=== PATIENT | male | born 1960 | race Two or more races ===

== ENCOUNTER 2017-09-22 12:40 | Observation (INO) | payer OTHER ==
[~2017-09-22] VITALS: Ht 172.7 cm; Wt 99.8 kg
[~2017-09-22 12:40] MED LIST changes: -FURO-47 PO; -LEVO0.5P3 MC; -LEVO50TA86 PO; -OMEP-137 PO; -PANT40TA65 PO; -SPIR25TA78 PO
[2017-09-22] MEDS ORDERED: OMEP-137 PO (13:10)
[2017-09-22 13:11] LABS: PLATELET COUNT, AUTOMATED 194 K/uL (150-450)
[2017-09-22 13:25] LABS: INR 1.15
[2017-09-22 13:50] VITALS: BP 128/79
[2017-09-22] MEDS: FUROSEMIDE 40 MG/4 ML VIAL IVP SCH (14:20)
--- NOTE | 2017-09-22 14:38 | History & Physical - General ---
History of Present Illness Chief Complaint This patient is a 57-year-old male who came in today to see me in the office for the chief complaint that he has been retaining water. According to patient he has noticed that in the last 1 month he has a steadily been gaining weight and has noticed significant edema of the lower extremities along with water retention in his abdomen his abdominal girth has increased significantly and is getting short of breath with exertion. According to patient 's symptoms have restarted roughly one month ago patient does have history of heavy Alcohol consumption in the past but according to patient he has not had any alcoholic drink in last 2-3 weeks patient is also on pioglitazone and amlodipine which could contribute to edema and fluid retention patient has gained 22 pounds since his last visit about 4 months ago Past medical history significant for NIDDM and is currently on metformin 1000 mg twice a day along with Actos 45 mg once a day blood sugars have been under good control recently last shown blood glucose of 138 and hemoglobin is in the range of 6 Past medical history significant for hypertension and is currently on amlodipine /Olmesartan 5/20 one every day blood pressure has been under good control Vital history significant for hyponatremia and is currently on sodium chloride 1 g every day Also has history of elevated liver function tests and most recent labs have shown AST of 70 and alkaline phosphatase of 199 patient does have a history of cholecystectomy in the past he also has prior history of elevated GGT likely related to alcoholic liver disease patient has also undergone hepatitis panel recently which was negative and antinuclear antibody that was negative and iron panel and ferritin that were all normal No prior history of hypothyroidism but recent labs have shown TSH of 9.1 History Problems: (1) Diabetes mellitus, type 2 Status: Chronic (2) Alcoholic liver disease Status: Chronic (3) Hyponatremia Status: Chronic (4) Hyperlipidemia Status: Chronic (5) Ascites Status: Acute (6) Benign hypertension Status: Chronic (7) Thrombocytopenia Status: Chronic (8) Cholelithiases Status: Chronic (9) GI bleed Status: Chronic (10) Fatty liver Status: Chronic Home Meds Active Scripts Metformin Hcl (METFORMIN HCL) 1,000 Mg Tablet, 1 TAB PO BID, #180 TAB 2 Refills Prov:CHRISTI JENSEN MD 05/12/17 Amlodipine Bes/Olmesartan Med (LISSET 5-20 MG TABLET) 1 Each Tablet, 1 EACH PO DAILY, #90 EACH 4 Refills Prov:CHRISTI JENSEN MD 04/29/17 Pioglitazone Hcl (ACTOS) 45 Mg Tablet, 1 TAB PO QDAY, #90 TAB 4 Refills Prov:CHRISTI JENSEN MD 03/19/17 Atorvastatin Calcium (ATORVASTATIN CALCIUM) 20 Mg Tablet, 1 TAB PO QDAY, #30 TAB 4 Refills Prov:CHRISTI JENSEN MD 02/11/17 Reported Medications Omeprazole (OMEPRAZOLE) 20 Mg Tablet.dr, 20 MG PO QDAY Y for REFLUX, TAB 09/22/17 Sodium Chloride (SODIUM CHLORIDE) 1 Gm Tab, 1 GM PO QDAY, TAB 10/23/16 Allergies: Coded Allergies: No Known Drug Allergies (Verified , 04/29/16) Patient History: FH: diabetes mellitus MOTHER BROTHER OR SISTER Hx Smoking: No Smoking Status: Never Smoker Exposure to Second Hand Smoke?: No Caffeine Intake: Coffee, Tea Caffeine/Cups Per Day: 2-3 Hx Alcohol Use: Yes Alcohol Used: Beer Hx Substance Use Disorder: No Social Drug Use: Never Review of Systems ROS: Constitutional: Denies: Fever, Chills, Malaise ROS: Eyes: Denies: Eye Pain, Itchy Eye, Vision change ROS: HENT: Denies: Ear Drainage, Ear Pain, Ear Pressure ROS: Neurological: Denies Syncope, Denies Dizziness, Denies Vertigo, Denies Seizure ROS: Respiratory: Reports SOB w/ Exertion, Denies Dyspnea, Denies Orthopnea ROS: Cardiac: Reports Palpitations, Reports Peripheral Edema, Denies Chest Pain at Rest, Denies Chest Pain w/ Exertion ROS: Gastrointestinal: Denies Nausea, Denies Vomiting, Denies Diarrhea, Denies Constipation ROS: Genitourinary: Denies Urinary Frequency, Denies Dyuria, Denies Hematuria ROS: Musculoskeletal: Denies RUE Weakness, Denies LUE Weakness, Denies RLE Weakness ROS: Integumentary: Denies Rash, Denies Lesions, Denies Laceration ROS: Psych: Denies Depression, Denies Anxiety, Denies Insomnia ROS: Endocrine: Denies Intolerence to Heat, Denies Intolerence to Cold ROS: Lymph: Denies Swollen Lymph Nodes Exam Constitutional: Well Nourished, No Distress Eyes: Both Conjunctiva Clear, Both Sclera Clear Pupils: Both 3 mm ENT: Normal Neck: Full Range of Motion, Non-tender, No Masses, Normal Thyroid Cardiac: Regular Rate & Rhythm, No Gallop, No Murmur, Other (2+ edema both lower extremities) Edema: 2+ Pedal, 2+ Ankle, 2+ Lower Legs Inspection: Distended Percussion: All Quadrants Tympanic Palpation: Soft, Non-tender, No Guarding, No Hepatosplenomegaly Bowel Sounds: Active to all 4 Quadrants, Other (evidence of significant ascites ) Lymph: No Cervical Lymphadenopathy Integumentary: Skin Intact without Lesion / Mass Medical Decision Making Data Points Result Diagram: 09/22/17 1305 09/22/17 1305 EKG / Imaging Monitor Interpretation: Sinus Tachycardia (PG was done in the office) Pre-Admit Course Medical Record Review: Yes Assessment and Plan Problems: (1) Ascites Status: Acute Assessment & Plan: 09/22/17 patient has developed ascites or last 4 weeks he does have history of chronic liver disease and is likely cause of his ascites I suspect his developing cirrhosis plan is to get an ultrasound and paracentesis if required he will also be placed on furosemide 40 mg twice a day patient is placed on low sodium diet and we will continue with intake output and daily weight (2) Hyponatremia Status: Chronic Assessment & Plan: Patient has history of chronic hyponatremia sodium is 125 today but he appears to be in massive fluid overload and likely related to dilutional hyponatremia therefore his sodium chloride has been stopped and has been placed on fluid restriction with diuresis (3) Hypothyroidism Status: Acute Assessment & Plan: Recent labs have shown TSH of 9.1 plan is to start him on low-dose of levothyroxine at 50 g daily (4) Diabetes mellitus, type 2 Status: Chronic Assessment & Plan: Stable at this time however I plan to discontinue pioglitazone and will continue with metformin (5) Alcoholic liver disease Status: Chronic Assessment & Plan: History of chronic alcohol use the past chronically elevated liver function tests last ultrasound of the abdomen done in August/2015 has shown fatty infiltration of the liver (6) Benign hypertension Status: Chronic Assessment & Plan: Blood pressure medications are going to be on hold (7) Hyperlipidemia Status: Chronic Time Spent on Plan of Care: > 30 min Venous Thromboembolism VTE Risk Physician Assess for VTE Risk: Yes Patient's VTE Risk: Low VTE Diagnostic Test 2 Days Prior to Admit: No Antithrombotics Is Pt On Any Antithrombotics?: No Prophylaxis Tx Contraindicated Pharmacological Contraindicati: Liver Disease Exam Sepsis Stage: Ruled Out Problem Qualifiers (1) Ascites: Ascites type: due to alcoholic cirrhosis Qualified Codes: K70.31 - Alcoholic cirrhosis of liver with ascites (2) Hypothyroidism: Hypothyroidism type: acquired Qualified Codes: E03.9 - Hypothyroidism, unspecified (3) Diabetes mellitus, type 2: Diabetes mellitus usp insulin use: without termite treater use Diabetes mellitus complication status: without complication Qualified Codes: E11.9 - Type 2 diabetes mellitus without complications CHRISTI JENSEN MD Sep 22, 2017 14:38
--- NOTE | 2017-09-22 17:54 | RADIOLOGY IMAGING REPORT ---
FACILITY: PATIENT NAME: Rizwan Nazario : 1960 MR: [id number] V: [id number] EXAM DATE: ORDERING PHYSICIAN: CHRISTI JENSEN TECHNOLOGIST: Location: [facility] Patient: Rizwan Nazario : 1960 Visit/Account:[id number] Date of Sevice: 09/22/2017 Exam type: PARACENTESIS History: ASCITES, 22# WT GAIN Comparison: None. Findings: Informed consent was obtained. The patient's abdomen was prepped and draped usual sterile fashion. Local anesthesia was accomplished 1% lidocaine. Under sonographic guidance a paracentesis catheter w as advanced percutaneously into the lower right-sided the abdomen. Approximately 4400 mL of dark amb er ascitic fluid was removed from the peritoneal cavity. The procedure was accomplished without appa rent complication. IMPRESSION: 1. Successful ultrasound-guided paracentesis Report Dictated By: Jory Bella MD at 09/22/2017 5:50 PM Report E-Signed By: Jory Bella MD at 09/22/2017 5:51 PM WSN:[email or web address]
[2017-09-22] MEDS: metFORMIN HCL 500 MG TAB PO SCH (18:14)
[2017-09-22] MEDS: POTASSIUM CHL 20 MEQ TABCR PO SCH (18:15)
[2017-09-22 19:35] VITALS: BP 110/65
--- NOTE | 2017-09-22 21:13 | RADIOLOGY IMAGING REPORT ---
FACILITY: [facility] PATIENT NAME: Rizwan Nazario : 1960 MR: [id number] V: [id number] EXAM DATE: ORDERING PHYSICIAN: CHRISTI JENSEN TECHNOLOGIST: Location: [facility] Patient: Rizwan Nazario : 1960 Visit/Account:[id number] Date of Sevice: 09/22/2017 EXAMINATION: Complete Abdominal Ultrasound HISTORY: Ascites. COMPARISON: None. FINDINGS: Liver: Coarsened hepatic echotexture, with slight nodularity along the liver surface which may repre sent cirrhosis. There is increased echogenicity of the liver parenchyma compatible with fatty infiltr ation. No focal liver mass by ultrasound. The main portal vein is patent, with normal flow direction. Gallbladder: Surgically absent. Bile Ducts: No biliary ductal dilatation. The common duct measures 4 mm. Pancreas: The head and body of the pancreas are moderately well visualized and unremarkable where se en. Spleen: Normal; length 9 cm. Kidneys: Normal renal echogenicity bilaterally. The renal cortical parenchyma is maintained. Both kidneys are negative for hydronephrosis. The right kidney measures 13.1 cm in length; the left kidne y 13.1 cm. Aorta: Segmentally visualized. Patent and normal in caliber where seen. IVC: Patent. Ascites: Large volume abdominal ascites. IMPRESSION: 1. Liver parenchyma appears coarsened with mild nodularity along the liver surface which may indicate cirrhosis. 2. Fatty infiltration of the liver, with increased echogenicity. 3. Prior cholecystectomy. No bile duct dilatation. 4. Large volume of ascites. 5. Normal spleen size, measuring 9 cm in length. Report Dictated By: Rizwan Barraza MD at 09/22/2017 9:03 PM Report E-Signed By: Rizwan Barraza MD at 09/22/2017 9:09 PM WSN:[id number]
[2017-09-22 23:23] VITALS: BP 107/71
[2017-09-23 05:14] VITALS: BP 101/66
[2017-09-23] MEDS ORDERED: LEVOTHYROXINE SOD 0.05 MG TAB PO SCH (06:00)
[2017-09-23 06:34] LABS: PLATELET COUNT, AUTOMATED 145 K/uL (150-450)
[2017-09-23 08:04] VITALS: BP 91/58
[2017-09-23] MEDS: POTASSIUM CHL 20 MEQ TABCR PO SCH (08:24)
[2017-09-23] MEDS: metFORMIN HCL 500 MG TAB PO SCH (08:24)
[2017-09-23] MEDS: FUROSEMIDE 40 MG/4 ML VIAL IVP SCH (08:26)
--- NOTE | 2017-09-23 08:56 | Hospitalist Progress Note ---
Physical Exam Vital Signs Date Time Temp Pulse Resp B/P (MAP) Pulse Ox O2 Delivery O2 Flow Rate FiO2 09/23/17 08:04 95 Room Air 09/23/17 08:04 98.0 85 16 91/58 (69) Result Diagram: 09/23/17 0553 09/23/17 0553 Monitor Interpretation: Sinus Tachycardia (PG was done in the office) Assessment and Plan Problems: (1) Ascites Status: Acute Assessment & Plan: 09/22/17 patient has developed ascites or last 4 weeks he does have history of chronic liver disease and is likely cause of his ascites I suspect his developing cirrhosis plan is to get an ultrasound and paracentesis if required he will also be placed on furosemide 40 mg twice a day patient is placed on low sodium diet and we will continue with intake output and daily weight (2) Hyponatremia Status: Chronic Assessment & Plan: Patient has history of chronic hyponatremia sodium is 125 today but he appears to be in massive fluid overload and likely related to dilutional hyponatremia therefore his sodium chloride has been stopped and has been placed on fluid restriction with diuresis (3) Hypothyroidism Status: Acute Assessment & Plan: Recent labs have shown TSH of 9.1 plan is to start him on low-dose of levothyroxine at 50 g daily (4) Diabetes mellitus, type 2 Status: Chronic Assessment & Plan: Stable at this time however I plan to discontinue pioglitazone and will continue with metformin (5) Alcoholic liver disease Status: Chronic Assessment & Plan: History of chronic alcohol use the past chronically elevated liver function tests last ultrasound of the abdomen done in August/2015 has shown fatty infiltration of the liver (6) Benign hypertension Status: Chronic Assessment & Plan: Blood pressure medications are going to be on hold (7) Hyperlipidemia Status: Chronic Exam Sepsis Risk: No Definite Risk Problem Qualifiers (1) Ascites: Ascites type: due to alcoholic cirrhosis Qualified Codes: K70.31 - Alcoholic cirrhosis of liver with ascites (2) Hypothyroidism: Hypothyroidism type: acquired Qualified Codes: E03.9 - Hypothyroidism, unspecified (3) Diabetes mellitus, type 2: Diabetes mellitus shape carver insulin use: without shape carver use Diabetes mellitus complication status: without complication Qualified Codes: E11.9 - Type 2 diabetes mellitus without complications CHRISTI JENSEN MD Sep 23, 2017 08:56
[2017-09-23] MEDS ORDERED: PANTOPRAZOLE SOD 40 MG TABEC PO SCH (09:00)
[2017-09-23] MEDS ORDERED: SPIRONOLACTONE 25 MG TAB PO SCH (09:10)
--- NOTE | 2017-09-23 10:18 | RADIOLOGY IMAGING REPORT ---
FACILITY: [facility] [place] PATIENT NAME: Rizwan Nazario : 1960 MR: [id number] V: [id number] EXAM DATE: ORDERING PHYSICIAN: CHRISTI JENSEN TECHNOLOGIST: Location: [facility] Patient: Rizwan Nazario : 1960 Visit/Account:[id number] Date of Sevice: 09/23/2017 Exam type: CHEST PA AND LAT History: fluid overload Comparison: None. Findings: Small amount of airspace consolidation is identified in the right middle lobe and right lower lobe wh ich may represent scarring and/or atelectasis. No evidence of pleural effusions or pulmonary edema. Cardiac silhouette is normal in size. IMPRESSION: 1. Small amount of airspace consolidation in the right middle lobe and right lower lobe consistent w ith scarring and/or atelectasis. Report Dictated By: Jory Bella MD at 09/23/2017 10:12 AM Report E-Signed By: Jory Bella MD at 09/23/2017 10:14 AM WSN:[email or web address]
[2017-09-23] MEDS ORDERED: FURO-47 PO (11:48)
[2017-09-23] MEDS ORDERED: PANT40TA65 PO (11:48)
[2017-09-23] MEDS ORDERED: SPIR25TA78 PO (11:48)
--- NOTE | 2017-09-23 11:52 | Hospitalist Depart ---
Discharge Summary Reason for Hosp/Final Diag: (1) Ascites Status: Acute Hospital Course & Plan: 09/22/17 patient has developed ascites or last 4 weeks he does have history of chronic liver disease and is likely cause of his ascites I suspect his developing cirrhosis plan is to get an ultrasound and paracentesis if required he will also be placed on furosemide 40 mg twice a day patient is placed on low sodium diet and we will continue with intake output and daily weight 09/23/17 patient was admitted yesterday because of ascites and edema of the lower extremities patient underwent paracentesis yesterday and 4400. ML of dark fredy colored ascites fluid was removed. Ultrasound of the abdomen has shown coarse liver parenchyma with mild nodularity may be indicative of cirrhosis it also showed presence of fatty liver patient was placed on furosemide yesterday and this morning Spironolactone was added. Patient did not get any diuretic this morning because of low blood pressure. Echocardiogram has not shown any LV dysfunction. Patient feels better from yesterday he has minimal weight loss but I believe one of the weights is not accurate as it is not consistent with 4.4 L of paracentesis. Patient is on low-sodium diet patient is also on fluid restriction. He wishes to go home he feels like his breathing is better although he continues to have significant ascites and will need another paracentesis his pulse rate has come down from 110-85 and oxygen is around 95% on room year he has been afebrile I did offer patient that he should stay here for another 24 hours so he can be monitored for his blood pressure and diuresis and can have another paracentesis patient declined and he strongly wished to go home and mentioned that he will come back in for any tests or procedures. Patient will be discharged with the advice to use furosemide to 40 mg every morning with Spironolactone 50 mg every morning. Patient needs to be on 2 g sodium diet and 1.5 L of fluid restriction. Acetic fluid analysis is consistent with ascites related to cirrhosis however acetic fluid albumin is not back yet cytology is also pending I will set him up to have another paracentesis done on 09/25/17 along with repeat lab draw he will continue to monitor his weight at home (2) Hyponatremia Status: Chronic Hospital Course & Plan: Patient has history of chronic hyponatremia sodium is 125 today but he appears to be in massive fluid overload and likely related to dilutional hyponatremia therefore his sodium chloride has been stopped and has been placed on fluid restriction with diuresis 09/23/17 sodium is again 125 daily but he has not diuresed much he has been off sodium chloride. At this time it appears to be dilutional hyponatremia (3) Alcoholic liver disease Status: Chronic Hospital Course & Plan: History of chronic alcohol use the past chronically elevated liver function tests last ultrasound of the abdomen done in August/2015 has shown fatty infiltration of the liver Patient more than likely have cirrhosis ultrasound is consistent although his ProTime is fairly reasonable and platelet count is stable patient has history of heavy alcohol collection in the past he was drinking about 12 packs of beer every day but hasn't stopped drinking in the last 3 weeks he denies any withdrawal symptoms he has strongly been advised to remain off alcohol (4) Anemia Status: Acute Hospital Course & Plan: Hematocrit was 28.7 yesterday and today it is 25.3 Hemoccult was ordered but has not been completed there is no obvious evidence of bleeding plan is to recheck labs in 2 days his recent iron panel that was done at outside lab was normal we will repeat vitamin B12 and folic acid I suspect it is related to myelosuppression (5) Hypothyroidism Status: Acute Hospital Course & Plan: Recent labs have shown TSH of 9.1 plan is to start him on low-dose of levothyroxine at 50 g daily (6) Diabetes mellitus, type 2 Status: Chronic Hospital Course & Plan: Stable at this time however I plan to discontinue pioglitazone and will continue with metformin Blood sugars have remained fairly low and I have planned to discontinue metformin also and will continue to monitor his blood sugars (7) Benign hypertension Status: Chronic Hospital Course & Plan: Blood pressure medications are going to be on hold (8) Hyperlipidemia Status: Chronic Departure Weight (Pounds): 220 Result Diagram: 09/23/17 0553 09/23/17 0553 Imaging Location: [facility] [place] Patient: Rizwan Nazario : 1960 Visit/Account:[id number] Date of Sevice: 09/22/2017 EXAMINATION: Complete Abdominal Ultrasound HISTORY: Ascites. COMPARISON: None. FINDINGS: Liver: Coarsened hepatic echotexture, with slight nodularity along the liver surface which may represent cirrhosis. There is increased echogenicity of the liver parenchyma compatible with fatty infiltration. No focal liver mass by ultrasound. The main portal vein is patent, with normal flow direction. Gallbladder: Surgically absent. Bile Ducts: No biliary ductal dilatation. The common duct measures 4 mm. Pancreas: The head and body of the pancreas are moderately well visualized and unremarkable where seen. Spleen: Normal; length 9 cm. Kidneys: Normal renal echogenicity bilaterally. The renal cortical parenchyma is maintained. Both kidneys are negative for hydronephrosis. The right kidney measures 13.1 cm in length; the left kidney 13.1 cm. Aorta: Segmentally visualized. Patent and normal in caliber where seen. IVC: Patent. Ascites: Large volume abdominal ascites. IMPRESSION: 1. Liver parenchyma appears coarsened with mild nodularity along the liver surface which may indicate cirrhosis. 2. Fatty infiltration of the liver, with increased echogenicity. 3. Prior cholecystectomy. No bile duct dilatation. 4. Large volume of ascites. 5. Normal spleen size, measuring 9 cm in length. Report Dictated By: Rizwan Barraza MD at 09/22/2017 9:03 PM Location: [facility] [place] Patient: Rizwan Nazario : 1960 Visit/Account:[id number] [facility] Exam type: PARACENTESIS History: ASCITES, 22# WT GAIN Comparison: None. Findings: Informed consent was obtained. The patient's abdomen was prepped and draped usual sterile fashion. Local anesthesia was accomplished 1% lidocaine. Under sonographic guidance a paracentesis catheter was advanced percutaneously into the lower right-sided the abdomen. Approximately 4400 mL of dark fredy ascitic fluid was removed from the peritoneal cavity. The procedure was accomplished without apparent complication. IMPRESSION: 1. Successful ultrasound-guided paracentesis Report Dictated By: Jory Bella MD at 09/22/2017 5:50 PM Condition: Improved Discharge: Home, Self Care Time Spent: > 30 min Discharge Instructions Home Meds Active Scripts Spironolactone (SPIRONOLACTONE) 25 Mg Tablet, 50 MG PO QAM, #30 TAB 2 Refills Prov:CHRISTI JENSEN MD 09/23/17 Pantoprazole Sodium (PANTOPRAZOLE SODIUM) 40 Mg Tablet.dr, 40 MG PO QDAY, #30 TAB 2 Refills Prov:CHRISTI JENSEN MD 09/23/17 Furosemide (FUROSEMIDE) 40 Mg Tablet, 40 MG PO QAM, #30 TAB 2 Refills Prov:CHRISTI JENSEN MD 09/23/17 Reported Medications Levothyroxine Sodium (LEVOTHYROXINE SODIUM) 50 Mcg Tablet, 50 MCG PO QDAY, TAB 09/23/17 Levothyroxine Sodium (LEVOTHYROXINE SODIUM) 0.5 Gm Powder, 0.5 GM MC DAILY@0600 09/23/17 Discontinued Reported Medications Omeprazole (OMEPRAZOLE) 20 Mg Tablet.dr, 20 MG PO QDAY Y for REFLUX, TAB 09/22/17 Sodium Chloride (SODIUM CHLORIDE) 1 Gm Tab, 1 GM PO QDAY, TAB 10/23/16 Discontinued Scripts Metformin Hcl (METFORMIN HCL) 1,000 Mg Tablet, 1 TAB PO BID, #180 TAB 2 Refills Prov:CHRISTI JENSEN MD 05/12/17 Amlodipine Bes/Olmesartan Med (LISSET 5-20 MG TABLET) 1 Each Tablet, 1 EACH PO DAILY, #90 EACH 4 Refills Prov:CHRISTI JENSEN MD 04/29/17 Pioglitazone Hcl (ACTOS) 45 Mg Tablet, 1 TAB PO QDAY, #90 TAB 4 Refills Prov:CHRISTI JENSEN MD 03/19/17 Atorvastatin Calcium (ATORVASTATIN CALCIUM) 20 Mg Tablet, 1 TAB PO QDAY, #30 TAB 4 Refills Prov:CHRISTI JENSEN MD 02/11/17 Diet: Fluid Restricted, 2 Gram Sodium (NA) Special Instructions: cbs, cmp b12 and Folate on 09/25/17 Therapeutic paracentesis on 09/25/2017 Appointment with Eva in 2 days on 09/25/17 Venous Thromboembolism Antithrombotics Is Pt On Any Antithrombotics?: No Problem Qualifiers (1) Ascites: Ascites type: due to alcoholic cirrhosis Qualified Codes: K70.31 - Alcoholic cirrhosis of liver with ascites (2) Anemia: Anemia type: other cause Other causes of anemia: chronic disease, other Qualified Codes: D63.8 - Anemia in other chronic diseases classified elsewhere (3) Hypothyroidism: Hypothyroidism type: acquired Qualified Codes: E03.9 - Hypothyroidism, unspecified (4) Diabetes mellitus, type 2: Diabetes mellitus mcfp insulin use: without film washer use Diabetes mellitus complication status: without complication Qualified Codes: E11.9 - Type 2 diabetes mellitus without complications CHRISTI JENSEN MD Sep 23, 2017 11:52
[2017-09-23] MEDS ORDERED: LEVO0.5P3 MC (12:19)
[2017-09-23] MEDS ORDERED: LEVO50TA86 PO (12:21)
[2017-09-23] MEDS ORDERED: FUROSEMIDE 40 MG TAB PO SCH (14:00)
[2017-09-25] MEDS ORDERED: SPIR100T31 PO (11:02)
== END 2017-09-23 12:11 | disposition home or self-care (01) ==
LOC: MED 12:40 → INTOOBSV 12:40
PROVIDERS: ADMIT Internal Medicine; ATTEND Internal Medicine
DX: K70.31 Alcoholic cirrhosis of liver with ascites (principal); E87.1 Hypo-osmolality and hyponatremia; E03.9 Hypothyroidism, unspecified; E11.9 Type 2 diabetes mellitus without complications; I10 Essential (primary) hypertension; E78.5 Hyperlipidemia, unspecified
CPT/HCPCS: 36415; 36416; 49083; 71046; 76700; 81001; 82042; 82945; 82948; 83615; 83880; 84157; 84443; 85025; 85610; 85730; 87071; 87205; 88104; 89050; 93306; G0378; G0379; J1940; 82040; 82247; 82310; 82374; 82435; 82565; 82947; 84075; 84132; 84155; 84295; 84450; 84460; 84520

== ENCOUNTER → 2017-09-22 | Outpatient (CLI) | payer OTHER ==
[~2017-09-22] MED LIST: AMLO-543 PO; ATOR20TA65 PO; FURO-47 PO; HYDR-4309 PO; IBU600 PO; IBUP600T22 PO; LEVO0.5P3 MC; LEVO50TA86 PO; LOR5 PO; LOR5/325 PO; METF-1 PO; METF-409 PO; METF-421 PO; OMEP-125 PO; OMEP-137 PO; PANT40TA65 PO; PIOG45TA22 PO; PIOG45TA3 PO; PRAV20TA65 PO; ROSI2TAB11 PO; SODCTAB PO; SPIR25TA78 PO; TELM80TA5 PO; TRILI135PT PO
--- NOTE | 2017-09-23 10:52 | EKG ---
FACILITY: [facility] [place] PATIENT NAME: RITA MARIA : [id number] MR: [id number] V: [id number] EXAM DATE: ORDERING PHYSICIAN: CHRISTI JENSEN TECHNOLOGIST: OXANA Test Reason : Blood Pressure : / mmHG Vent. Rate : 106 BPM Atrial Rate : 106 BPM P-R Int : 142 ms QRS Dur : 080 ms QT Int : 330 ms P-R-T Axes : 027 010 -17 degrees QTc Int : 438 ms Sinus tachycardia Septal infarct , age undetermined Inferior infarct , age undetermined Abnormal ECG No previous ECGs available Referred By: Confirmed By:
== END ==
LOC: RESP 08:28
PROVIDERS: ATTEND Internal Medicine
DX: Z02.9 Encounter for administrative examinations, unspecified (principal)

== ENCOUNTER → 2017-09-25 | Outpatient (CLI) | payer OTHER ==
[~2017-09-25] MED LIST changes: +FURO-47 PO; +LEVO0.5P3 MC; +LEVO50TA86 PO; +OMEP-137 PO; +PANT40TA65 PO; +SPIR100T31 PO; +SPIR25TA78 PO
[2017-09-25 08:59] LABS: PLATELET COUNT, AUTOMATED 185 K/uL (150-450)
[2017-09-25 09:09] LABS: INR 1.2
--- NOTE | 2017-09-25 15:42 | RADIOLOGY IMAGING REPORT ---
FACILITY: [facility] - [place] PATIENT NAME: Rizwan Nazario : 1960 MR: [id number] V: [id number] EXAM DATE: ORDERING PHYSICIAN: CHRISTI JENSEN TECHNOLOGIST: Location: [facility] Patient: Rizwan Nazario : 1960 Visit/Account:[id number] Date of Sevice: 09/25/2017 Ultrasound-guided paracentesis Procedure details: The risks of the procedure were discussed. All questions were answered. The right lower quadrant wa s prepped and draped in sterile fashion. Approximately 5 mL 1% lidocaine was utilized for local anes thesia. A paracentesis needle/catheter was advanced into right lower abdomen ascites under ultrasoun d guidance. The needle was removed and catheter left in place. 5030 mL ascites was then withdrawn. The catheter was removed. No compilations occurred. IMPRESSION: Successful ultrasound-guided paracentesis. Report Dictated By: Wang Cobb MD at 09/25/2017 3:37 PM Report E-Signed By: Wang Cobb MD at 09/25/2017 3:39 PM WSN:[email or web address]
== END ==
LOC: US 07:06
PROVIDERS: ATTEND Internal Medicine
DX: E03.9 Hypothyroidism, unspecified (principal); K70.31 Alcoholic cirrhosis of liver with ascites; R60.0 Localized edema; D69.6 Thrombocytopenia, unspecified; E87.1 Hypo-osmolality and hyponatremia; K92.9 Disease of digestive system, unspecified
CPT/HCPCS: 36415; 49083; 82040; 82247; 82310; 82374; 82435; 82565; 82607; 82728; 82746; 82947; 83540; 83550; 84075; 84132; 84155; 84295; 84450; 84460; 84520; 85025; 85610

== ENCOUNTER → 2017-10-01 | Outpatient (CLI) | payer OTHER ==
[~2017-10-01] MED LIST changes: -PIOG45TA3 PO; +PIOG45TA65 PO; -SPIR100T31 PO; +SPIR100T33 PO; -SPIR25TA78 PO; +SPIR25TA80 PO
[2017-10-01 13:13] LABS: PLATELET COUNT, AUTOMATED 209 K/uL (150-450)
--- NOTE | 2017-10-01 14:01 | RADIOLOGY IMAGING REPORT ---
FACILITY: [facility] - [place] PATIENT NAME: Rizwan Nazario : 1960 MR: [id number] V: [id number] EXAM DATE: ORDERING PHYSICIAN: CHRISTI JENSEN TECHNOLOGIST: Location: [facility] Patient: Rizwan Nazario : 1960 Visit/Account:[id number] Date of Sevice: 10/01/2017 ADDENDUM #1 Results were called to CHRISTI JENSEN M.D. At 10/01/2017 2:06 PM. Report Dictated By: Gibran Green MD at 10/01/2017 2:05 PM Report E-Signed By: Gibran Green MD at 10/01/2017 2:17 PM ORIGINAL REPORT KUB SINGLE VIEW ABDOMEN History: Bloating with abdominal pain. Comparison study: None. Findings: There are multiple mildly dilated loops of small bowel throughout the abdomen. There are i s no gastric distention. There is gas in the transverse colon and left colon. The findings are sugges tive of an early or partial small bowel obstruction. Follow-up films are recommended to follow the pr ogression of these abnormal findings. There are findings of osteoarthrosis involving the hips bilaterally. IMPRESSION: 1. Abnormal findings of multiple dilated loops of small bowel with gas in the transverse colon and le ft colon. The stomach is not dilated. The findings are worrisome for partial or early small bowel obs truction. Report Dictated By: Gibran Green MD at 10/01/2017 1:56 PM Report E-Signed By: Gibran Green MD at 10/01/2017 1:58 PM WSN:[id number]
== END ==
LOC: RAD 12:54
PROVIDERS: ATTEND Internal Medicine
DX: M16.0 Bilateral primary osteoarthritis of hip (principal); R19.8 Other specified symptoms and signs involving the digestive system and abdomen; R18.8 Other ascites; K74.60 Unspecified cirrhosis of liver; E87.1 Hypo-osmolality and hyponatremia; I10 Essential (primary) hypertension
CPT/HCPCS: 36415; 74018; 82040; 82247; 82310; 82374; 82435; 82565; 82947; 84075; 84132; 84155; 84295; 84443; 84450; 84460; 84520; 85025

== ENCOUNTER 2017-10-03 14:39 | Outpatient (RCR) | payer OTHER ==
--- NOTE | 2017-10-02 12:47 | RADIOLOGY IMAGING REPORT ---
FACILITY: [facility] [place] PATIENT NAME: Rizwan Nazario : 1960 MR: [id number] V: [id number] EXAM DATE: ORDERING PHYSICIAN: CHRISTI JENSEN TECHNOLOGIST: Location: [facility] Patient: Rizwan Nazario : 1960 Visit/Account:[id number] Date of Sevice: 10/02/2017 EXAMINATION: CT abdomen and pelvis with contrast COMPARISON: None. HISTORY: Portal hypertension. Small bowel obstruction. Ascites. PROCEDURE: Multiplanar contrast enhanced CT of the abdomen and pelvis with 85 mL intravenous Isovue 3 70 and enteric contrast. One of the following dose optimization techniques was utilized in the perfor delia of this exam: Automated exposure control; adjustment of the mA and/or kV according to the patie nt's size; or use of an iterative reconstruction technique. Specific details can be referenced in [facility]'s radiology CT exam operational policy. FINDINGS: Visualized thorax: Lung base mild atelectasis. No pleural effusion. Visualized cardiac chambers are w ithin normal limits. Liver: Heterogeneous liver with hypertrophy of the caudate lobe and a questionable micronodular conto ur. Gallbladder and biliary system: Cholecystectomy. No bile duct dilation. Spleen: Homogeneous 9.4 cm spleen. Pancreas: Negative. Adrenal glands: Negative. Kidneys and bladder: No renal mass or evidence of an obstructive uropathy. Urinary bladder is unrema rkable. Vessels: Aortoiliac mild to moderate atherosclerosis. No abdominal aortic aneurysm. The portal venous system is patent within main portal vein measuring 1.8 cm in maximal diameter. The umbilical vein is recannulated and there are scattered small portosystemic collaterals. Portal vein confluence and spl enic vein are both patent. Bowel and mesentery: Contrast is present throughout the small bowel and colon. No gastric distention. No small bowel obstruction. Appendix is within normal limits. Minimal stool in the colon. Approximat thor 1.5 cm complex collection of gas along the posterior margin of the cecum (series 2 image 92) is f avored to be within a thin-walled diverticulum with a focal perforation thought to be less likely. No definite site of acute bowel wall inflammation is identified although evaluation is mildly limited b y the surrounding ascites. Mild edema throughout the mesentery and omentum. Pelvic organs: Negative. Lymph nodes: No adenopathy. Free air/free fluid: Large volume of simple appearing abdominopelvic ascites. No definite loculated f luid collection is identified. No pneumoperitoneum. Abdominal wall and osseous structures: Abdominal wall is intact. Mild diffuse edema of the simultaneo us soft tissues. Multilevel degenerative change throughout the visualized spine with moderately advan gregoria degenerative disc disease at L5-S1 and at least mild to moderate canal stenosis. No acute finding s. IMPRESSION: 1. Cirrhosis with a large volume of ascites. 2. No bowel obstruction. 3. Main portal vein is patent. 4. Additional nonacute findings as described above. Results were discussed with CHRISTI JENSEN at 10/02/2017 12:42 PM. Report Dictated By: Marv Rutherford MD at 10/02/2017 12:14 PM Report E-Signed By: Marv Rutherford MD at 10/02/2017 12:44 PM WSN:[id number]
[~2017-10-03 14:39] MED LIST changes: +DIATRIZOATE MEGL/DIATRIZOA SOD 367 MG/ML SOLN ONE; +IOPAMIDOL 76% 100 ML INFUS BTL 100 ML ONE
--- NOTE | 2017-10-06 13:35 | RADIOLOGY IMAGING REPORT ---
FACILITY: [facility] - [place] PATIENT NAME: Rizwan Nazario : 1960 MR: [id number] V: [id number] EXAM DATE: ORDERING PHYSICIAN: CHRISTI JENSEN TECHNOLOGIST: Location: [facility] [place] Patient: Rizwan Nazario : 1960 Visit/Account:[id number] Date of Sevice: 10/06/2017 Ultrasound-guided paracentesis INDICATION: Ascites. Liver cirrhosis. COMPARISON: None Available. FINDINGS: After informed consent was obtained, the patient was prepped and draped in the standard alina rile fashion. Local anesthesia was obtained with 1% buffered lidocaine in the right lower quadrant. Under fluoroscopic guidance, an arrow needle was advanced into the peritoneal cavity and approximatel y 5010 mL of clear yellow fluid was drained. There were no immediate complications and the patient tolerated the procedure well. IMPRESSION: 1. Successful ultrasound guided paracentesis without complication. Report Dictated By: Milton Huerta at 10/06/2017 1:30 PM Report E-Signed By: Milton Huerta at 10/06/2017 1:31 PM WSN:[email or web address]
[2017-10-08] MEDS ORDERED: TRAM-420 PO (08:30)
[2017-10-14] MEDS ORDERED: LEVO50TA86 PO (11:48)
== END 2017-10-06 18:00 | disposition home or self-care (01) ==
LOC: CT 14:39
PROVIDERS: ATTEND Internal Medicine
DX: K70.31 Alcoholic cirrhosis of liver with ascites (principal); K76.6 Portal hypertension
CPT/HCPCS: 49083; 74177; A7048; Q9967

== ENCOUNTER → 2017-12-03 | Outpatient (CLI) | payer OTHER ==
[~2017-12-03] MED LIST changes: -DIATRIZOATE MEGL/DIATRIZOA SOD 367 MG/ML SOLN ONE; -IOPAMIDOL 76% 100 ML INFUS BTL 100 ML ONE; +LEVO75TA73 PO; -METF-421 PO; +METF-452 PO; +TRAM-420 PO
--- NOTE | 2017-12-03 16:21 | RADIOLOGY IMAGING REPORT ---
FACILITY: [facility] PATIENT NAME: Rizwan Nazario : 1960 MR: [id number] V: [id number] EXAM DATE: ORDERING PHYSICIAN: CHRISTI JENSEN TECHNOLOGIST: Location: [facility] Patient: Rizwan Nazario : 1960 Visit/Account:[id number] Date of Sevice: 12/03/2017 Exam type: PARACENTESIS History: Ascites Comparison: October 06, 2017. Findings: Pulmonary sonographic images of the abdomen demonstrate a moderate amount of ascites. Informed consent was obtained. The right-sided the patient's abdomen was prepped and draped usual st erile fashion. Local anesthesia was accomplished 1% lidocaine. Under sonographic guidance a paracen tesis catheter was advanced percutaneously into the right lower abdominal wall into the peritoneal ca vity. 4950 mL of straw-colored ascites were removed. The procedure was accomplished without apparen t complication IMPRESSION: 1. Successful sonographically guided paracentesis with interval removal of 4950 mL of clear straw-co lored ascites Report Dictated By: Jory Bella MD at 12/03/2017 4:16 PM Report E-Signed By: Jory Bella MD at 12/03/2017 4:18 PM WSN:[email or web address]
== END ==
LOC: US 01:46
PROVIDERS: ATTEND Internal Medicine
DX: K74.60 Unspecified cirrhosis of liver (principal); R18.8 Other ascites
CPT/HCPCS: 49083

== ENCOUNTER → 2017-12-05 | Outpatient (CLI) | payer OTHER ==
--- NOTE | 2017-12-05 17:10 | RADIOLOGY IMAGING REPORT ---
FACILITY: [facility] PATIENT NAME: Rizwan Nazario : 1960 MR: [id number] V: [id number] EXAM DATE: ORDERING PHYSICIAN: JEANETTE EUGENE TECHNOLOGIST: Location: [facility] Patient: Rizwan Nazario : 1960 Visit/Account:[id number] Date of Sevice: 12/05/2017 EXAMINATION: Ultrasound-guided paracentesis HISTORY: Cirrhotic ascites PROCEDURE: Previous studies were reviewed. Procedure benefits and risks were discussed with the patient and writ ten consent was obtained. Time out was performed prior to the procedure. Ultrasound images were taken and saved of the largest pocket in the right upper quadrant and sent to PACS for permanent archiving Ultrasound was used to polly an area on upper abdomen for paracentesis the patient's skin was prepped and draped in the usual sterile fashion. Three mL of lidocaine 1% was used for skin anesthesia. A [employer] catheter was advanced into the ascites without complication. 4360 mL of fluid were successfully evacuated. The previous paracentesis site had leakage. The site was prepped and a 0 silk [address] stitch was pl aced at the previous puncture site and covered with Dermabond. The new puncture site likewise was prepped with a mattress stitch placed with 0 silk and covered with Dermabond IMPRESSION: 1. Successful paracentesis as described. Report Dictated By: Virgilio Castillo MD at 12/05/2017 5:01 PM Report E-Signed By: Virgilio Castillo MD at 12/05/2017 5:05 PM WSN:[email or web address]
== END ==
LOC: US 12:13
PROVIDERS: ATTEND Surgery
DX: K74.60 Unspecified cirrhosis of liver (principal); R18.8 Other ascites
CPT/HCPCS: 49083

== ENCOUNTER → 2017-12-15 | Outpatient (CLI) | payer OTHER ==
[~2017-12-15] MED LIST changes: +OXYC5TAB38 PO
[2017-12-15 12:02] LABS: PLATELET COUNT, AUTOMATED 170 K/uL (150-450)
[2017-12-15 12:09] LABS: INR 1.11
== END ==
LOC: LAB 11:32
PROVIDERS: ATTEND Internal Medicine
DX: R18.8 Other ascites (principal); K74.60 Unspecified cirrhosis of liver; E87.1 Hypo-osmolality and hyponatremia; K76.6 Portal hypertension
CPT/HCPCS: 36415; 82040; 82247; 82310; 82374; 82435; 82565; 82947; 84075; 84132; 84155; 84295; 84450; 84460; 84520; 85025; 85610

== ENCOUNTER → 2017-12-16 | Outpatient (CLI) | payer OTHER ==
--- NOTE | 2017-12-16 16:13 | RADIOLOGY IMAGING REPORT ---
FACILITY: [facility] [place] PATIENT NAME: Rizwan Nazario : 1960 MR: [id number] V: [id number] EXAM DATE: ORDERING PHYSICIAN: CHRISTI JENSEN TECHNOLOGIST: Location: [facility] [place] Patient: Rizwan Nazario : 1960 Visit/Account:[id number] Date of Sevice: 12/16/2017 Exam type: PARACENTESIS History: Ascites Comparison: December 05, 2017. Findings: Informed consent was obtained. The right-sided the patient's abdomen was prepped and draped usual st erile fashion. Local anesthesia was accomplished with 1% lidocaine. Under sonographic guidance a pa racentesis catheter was advanced percutaneously into the right lateral aspect of the patient's abdome n. Approximately 4850 mL of ascites were removed from the peritoneal cavity. The patient tolerated the procedure well. IMPRESSION: 1. Successful sonographically guided paracentesis with interval removal of 4850 mL of ascites Report Dictated By: Jory Bella MD at 12/16/2017 4:08 PM Report E-Signed By: Jory Bella MD at 12/16/2017 4:10 PM WSN:[email or web address]
== END ==
LOC: US 01:12
PROVIDERS: ATTEND Internal Medicine
DX: K74.60 Unspecified cirrhosis of liver (principal); R18.8 Other ascites
CPT/HCPCS: 49083; A7048

== ENCOUNTER 2018-01-06 14:46 | Outpatient (RCR) | payer OTHER ==
[2018-01-06 10:05] LABS: PLATELET COUNT, AUTOMATED 187 K/uL (150-450)
[2018-01-06 10:17] LABS: INR 1.13
[~2018-01-06 14:46] MED LIST changes: -HYDR-4309 PO; +HYDR-653 PO
--- NOTE | 2018-01-07 14:14 | RADIOLOGY IMAGING REPORT ---
FACILITY: [facility] PATIENT NAME: Rizwan Nazario : 1960 MR: [id number] V: [id number] EXAM DATE: ORDERING PHYSICIAN: CHRISTI JENSEN TECHNOLOGIST: Location: [facility] [place] Patient: Rizwan Nazario : 1960 Visit/Account:[id number] Date of Sevice: 01/07/2018 Exam type: PARACENTESIS History: Ascites Comparison: December 16, 2017. Findings: Informed consent was obtained. A large amount of abdominal ascites was demonstrated sonographically. The right lateral aspect the patient's lower abdomen was prepped and draped usual sterile fashion. Local anesthesia was accomplished with 1% lidocaine. Under sonographic guidance a [employer] catheter was advanced percutaneously into the peritoneal cavity. Approximately 4900 mL of ascitic fluid was anika jesus alberto from the peritoneal cavity and sent to laboratory for evaluation. The procedure was accomplished without apparent complication. IMPRESSION: 1. Successful sonographically guided paracentesis with interval removal of 4900 mL of ascitic fluid. Report Dictated By: Jory Bella MD at 01/07/2018 2:10 PM Report E-Signed By: Jory Bella MD at 01/07/2018 2:11 PM PAULON:[email or web address]
[2018-01-09] MEDS ORDERED: OXYC5TAB38 PO (10:20)
[2018-01-09] MEDS ORDERED: DESO15CR TP (11:57)
== END 2018-01-07 12:00 | disposition home or self-care (01) ==
LOC: US 14:46 → EDSTATUS 14:46 → US 01-07 12:00
PROVIDERS: ATTEND Internal Medicine
DX: R18.8 Other ascites (principal); K74.60 Unspecified cirrhosis of liver; E87.1 Hypo-osmolality and hyponatremia
CPT/HCPCS: 36415; 49083; 84443; 85025; 85610; A7048; 82040; 82247; 82310; 82374; 82435; 82565; 82947; 84075; 84132; 84155; 84295; 84450; 84460; 84520

== ENCOUNTER 2018-01-09 14:59 | Emergency (ER) | payer OTHER ==
[~2018-01-09 14:59] MED LIST changes: +DESO15CR TP
--- NOTE | 2018-01-09 15:06 | ER Report ---
History and Physical Time Seen By : 15:06 HPI/ROS CHIEF COMPLAINT: Hyponatremia HISTORY OF PRESENT ILLNESS: This is a 57-year-old male who presents to the emergency department from the cancer center for hyponatremia. Patient was seen and evaluated the cancer center today, was getting an albumin infusion. Noted his sodium was 115, they did call [facility] and was sent to the ED for further evaluation. The patient denies fevers, chills, aches, chest pain, shortness of breath, diarrhea, visual changes or fevers. Patient also has a long-standing history of ascites and liver disease secondary to alcoholism. He does have bruising to his arms REVIEW OF SYSTEMS: Constitutional: No fever, no chills. Eyes: No discharge. ENT: No sore throat. Cardiovascular: No chest pain, no palpitations. Respiratory: No cough, no shortness of breath. Gastrointestinal: No abdominal pain, no vomiting. Genitourinary: No hematuria. Musculoskeletal: No back pain. Skin: As above. Neurological: No headache. Allergies: Coded Allergies: No Known Drug Allergies (Verified , 04/29/16) Home Meds Active Scripts Oxycodone Hcl (OXYCODONE HCL) 5 Mg Tablet, 7.5 MG PO BID PRN for pain, #60 TAB Prov:CHRISTI BERRY MD 01/09/18 Furosemide (FUROSEMIDE) 40 Mg Tablet, 40 MG PO DIRECTED, #120 TAB 2 Refills take 2 in am and 2 in the evening Prov:CHRISTI BERRY MD 01/06/18 Pantoprazole Sodium (PANTOPRAZOLE SODIUM) 40 Mg Tablet.dr, 40 MG PO QDAY, #30 TAB 6 Refills Prov:CHRISTI BERRY MD 10/17/17 Levothyroxine Sodium (LEVOTHYROXINE SODIUM) 75 Mcg Tablet, 75 MCG PO QDAY, #90 TAB 2 Refills Prov:CHRISTI BERRY MD 10/17/17 Spironolactone (SPIRONOLACTONE) 100 Mg Tablet, 100 MG PO QAM, #30 TAB 3 Refills Prov:CHRISTI BERRY MD 09/25/17 Discontinued Scripts Desoximetasone (DESOXIMETASONE) 15 Gm Cream..g., 0.05 G TP BID, #15 GM Prov:CHRISTI BERRY MD 01/09/18 Past Medical/Surgical History The patient has a past medical and surgical history of hypertension, hypercholesterolemia, cirrhosis of the liver secondary to alcohol consumption, urinary has stents, arthritis, broken leg, back pain, wears glasses, type II diabetes, hypothyroidism, ascites, cholecystectomy, right foot surgery, paracentesis 6. Reviewed Nurses Notes: Yes Hx Smoking: No Smoking Status: Never Smoker Exposure to Second Hand Smoke?: No Hx Substance Use Disorder: No Hx Alcohol Use: Yes Constitutional Vital Sign - Last 24 Hours 01/09/18 01/09/18 01/09/18 01/09/18 14:59 15:06 15:06 15:14 Temp 97.5 Pulse ??? 66 ??? Resp 16 B/P (MAP) 117/83 (94) 117/83 Pulse Ox 98 98 O2 Delivery Room Air 01/09/18 01/09/18 01/09/18 01/09/18 15:18 15:29 15:30 15:44 Pulse 63 66 B/P (MAP) 114/81 (92) 110/78 (89) Pulse Ox 90 93 01/09/18 01/09/18 01/09/18 01/09/18 15:59 16:00 16:14 16:29 Pulse ? 67 B/P (MAP) ???/??? (9455) Pulse Ox 91 01/09/18 01/09/18 01/09/18 01/09/18 16:30 16:44 16:49 17:00 Pulse 70 68 B/P (MAP) 104/73 (83) 110/72 (85) Pulse Ox 92 91 01/09/18 01/09/18 01/09/18 01/09/18 17:04 17:19 17:30 17:34 Pulse 67 67 62 B/P (MAP) ???/??? (3885) Pulse Ox 93 97 92 01/09/18 01/09/18 01/09/18 01/09/18 17:49 18:00 18:04 18:19 Pulse 63 ? B/P (MAP) ???/??? (4055) Pulse Ox 94 01/09/18 18:23 Temp 97.7 Physical Exam General Appearance: The patient is alert, has no immediate need for airway protection and no signs of toxicity. Eyes: Pupils equal and round no pallor or injection. ENT, Mouth: Mucous membranes are moist. Respiratory: There are no retractions, lungs are clear to auscultation. Cardiovascular: Regular rate and rhythm, no murmurs, clicks or rubs. Gastrointestinal: Abdomen is firm, round and non tender, no masses, hypoactive bowel sounds. Ascites. Neurological: Alert and oriented 4. Moving all extremities. Following all commands. No focal neuro deficits. Skin: Warm and dry, no rashes. Musculoskeletal: Neck is supple non tender. Extremities are nontender, nonswollen and have full range of motion. DIFFERENTIAL DIAGNOSIS: After history and physical exam differential diagnosis was considered for SIADH, dilutional hyponatremia. Medical Decision Making Data Points Laboratory Hematology Test 01/09/18 15:57 01/09/18 17:20 Urine Color Yellow Urine Clarity Clear Urine pH 5.0 pH (4.8-9.5) Urine Specific [place] 1.004 Urine Protein Negative mg/dL (NEGATIVE) Urine Glucose (UA) Negative mg/dL (NEGATIVE) Urine Ketones Negative mg/dL (NEGATIVE) Urine Blood Negative (NEGATIVE) Urine Nitrite Negative (NEGATIVE) Urine Bilirubin Negative (NEGATIVE) Urine Urobilinogen Negative mg/dL (0.2-1.9) Urine Leukocyte Esterase Negative (NEGATIVE) Urine RBC <1 /HPF (0-2/HPF) Urine WBC 1 /HPF (0-5/HPF) Urine Squamous Epithelial Cells None /LPF (</=FEW) Urine Bacteria Negative /HPF (NONE-FEW) Urine Mucus None /HPF (NONE-FEW) Urine Osmolality 129 mosm/K (500-800) Urine Random Sodium 6 MEQ/L Osmolality 267 mOSM/K (275-295) Chemistry Test 01/09/18 15:57 01/09/18 17:20 Urine Color Yellow Urine Clarity Clear Urine pH 5.0 pH (4.8-9.5) Urine Specific [place] 1.004 Urine Protein Negative mg/dL (NEGATIVE) Urine Glucose (UA) Negative mg/dL (NEGATIVE) Urine Ketones Negative mg/dL (NEGATIVE) Urine Blood Negative (NEGATIVE) Urine Nitrite Negative (NEGATIVE) Urine Bilirubin Negative (NEGATIVE) Urine Urobilinogen Negative mg/dL (0.2-1.9) Urine Leukocyte Esterase Negative (NEGATIVE) Urine RBC <1 /HPF (0-2/HPF) Urine WBC 1 /HPF (0-5/HPF) Urine Squamous Epithelial Cells None /LPF (</=FEW) Urine Bacteria Negative /HPF (NONE-FEW) Urine Mucus None /HPF (NONE-FEW) Urine Osmolality 129 mosm/K (500-800) Urine Random Sodium 6 MEQ/L Osmolality 267 mOSM/K (275-295) Urinalysis Test 01/09/18 15:57 Urine Color Yellow Urine Clarity Clear Urine pH 5.0 pH (4.8-9.5) Urine Specific [place] 1.004 Urine Protein Negative mg/dL (NEGATIVE) Urine Glucose (UA) Negative mg/dL (NEGATIVE) Urine Ketones Negative mg/dL (NEGATIVE) Urine Blood Negative (NEGATIVE) Urine Nitrite Negative (NEGATIVE) Urine Bilirubin Negative (NEGATIVE) Urine Urobilinogen Negative mg/dL (0.2-1.9) Urine Leukocyte Esterase Negative (NEGATIVE) Urine RBC <1 /HPF (0-2/HPF) Urine WBC 1 /HPF (0-5/HPF) Urine Squamous Epithelial Cells None /LPF (</=FEW) Urine Bacteria Negative /HPF (NONE-FEW) Urine Mucus None /HPF (NONE-FEW) Urine Osmolality 129 mosm/K (500-800) Urine Random Sodium 6 MEQ/L ED Course/Re-evaluation ED Course The patient was admitted to room. History and physical were obtained. Di fferential diagnoses were considered. An IV was started. Serum osmolality was collected. UA was collected. The patient's urine osmolality was 129, serum osmolality 267. The patient's sodium today when drawn at [facility] is 115, the sodium on 01/06/2018 was 123, the sodium on 12/15/2017 was 123. I did consult with Dr. Mane, the hospitalist on-call as well as the patient's primary care physician Dr. Berry, both agreed that the patient's would be able to go home, the patient's sodium today is likely dilutional secondary to noncompliance of his fluid restriction. I did speak with the patient regarding this, the patient did state that he has not been compliant he has been drinking more fluid than he should, he states it's very difficult to stick to the 1 L a day restriction. I did tell the patient that prior to comply with the 1 L per day fluid restriction for the next couple days follow-up Friday for repeat lab draw, results will go to Dr. Berry. Patient expressed understanding. I did reiterate to the patient that if anything changes over the course , increased confusion or any other complaints that he needs to return to the emergency department immediately. Patient expressed understanding, the patient did have a friend in the room with him that also expressed understanding. The patient had no other concerns at this time. Patient remained complaint free while in the emergency department. Patient was discharged home. Decision to Disposition Date: Jan 09, 2018 Decision to Disposition Time: 18:15 Depart Departure Latest Vital Signs Vital Signs Date Time Temp Pulse Resp B/P (MAP) Pulse Ox O2 Delivery O2 Flow Rate FiO2 01/09/18 18:23 97.7 01/09/18 18:19 ??? 01/09/18 18:00 ???/??? (1665) 01/09/18 17:49 94 01/09/18 15:06 16 Room Air Impression: Primary Impression: Hyponatremia Condition: Improved Disposition: HOME OR SELF-CARE Referrals: CHRISTI BERRY MD (PCP) 1 Week Patient Instructions: Fluid Restriction (ED), Hyponatremia (ED) Additional Instructions: I spoke with our hospitalist and your primary care provider, they feel as I do that you are okay to go home at this time. The hyponatremia is likely due to excess fluid consumption. I do highly recommend that you stick to the 1 L per day fluid restriction. I would also recommend returning to the ER for increased confusion or any other concerns that she may have. Please return to the outpatient laboratory Friday with the prescription IV given U for repeat lab studies, the results will go to Dr. Berry. Get plenty of rest. RICHARD MAYA FUEL PILOT ENGINEER-BC Jan 09, 2018 15:06
[2018-01-09] MEDS ORDERED: TRANEXAMIC AC 1000 MG/10ML SDV ONE (17:35)
== END 2018-01-09 18:25 | disposition home or self-care (01) ==
LOC: ER 15:15
DX: E87.1 Hypo-osmolality and hyponatremia (principal)
CPT/HCPCS: 36415; 81001; 83930; 83935; 84300; 99283

== ENCOUNTER → 2018-01-12 | Outpatient (CLI) | payer OTHER | LOC: LAB 11:35 | PROVIDERS: ATTEND Nurse Practitioner Family | DX: E87.1 Hypo-osmolality and hyponatremia (principal) | CPT/HCPCS: 36415; 82040; 82247; 82310; 82374; 82435; 82565; 82947; 84075; 84132; 84155; 84295; 84450; 84460; 84520 ==

== ENCOUNTER → 2018-01-14 | Outpatient (CLI) | payer OTHER | LOC: LAB 11:36 | PROVIDERS: ATTEND Internal Medicine | DX: E87.1 Hypo-osmolality and hyponatremia (principal); K74.60 Unspecified cirrhosis of liver | CPT/HCPCS: 36415; 82040; 82247; 82310; 82374; 82435; 82565; 82947; 84075; 84132; 84155; 84295; 84450; 84460; 84520 ==

== ENCOUNTER → 2018-01-30 | Outpatient (CLI) | payer OTHER ==
[2018-01-30 11:13] LABS: PLATELET COUNT, AUTOMATED 155 K/uL (150-450)
[2018-01-30 11:28] LABS: INR 1.17
== END ==
LOC: SPU 07:19
PROVIDERS: ATTEND Internal Medicine
DX: R18.8 Other ascites (principal); K74.60 Unspecified cirrhosis of liver; E87.1 Hypo-osmolality and hyponatremia; D69.6 Thrombocytopenia, unspecified
CPT/HCPCS: 85025; 85610; 85730; 86706

== ENCOUNTER → 2018-02-03 | Outpatient (CLI) | payer OTHER ==
--- NOTE | 2018-02-03 15:36 | RADIOLOGY IMAGING REPORT ---
FACILITY: [facility] PATIENT NAME: Rizwan Nazario : 1960 MR: [id number] V: [id number] EXAM DATE: ORDERING PHYSICIAN: CHRISTI JENSEN TECHNOLOGIST: Location: [facility] Patient: Rizwan Nazario : 1960 Visit/Account:[id number] Date of Sevice: 02/03/2018 Ultrasound-guided paracentesis HISTORY: Ascites COMPARISON: 01/07/2018 Procedure/Findings: Following discussion of procedural risks and benefits, informed consent was obtained and witnessed. A formal timeout procedure was performed. Utilizing ultrasound guidance for fluid localization, the [facility] lower abdominal quadrant was prepped and draped in sterile fashion. Following administration of 1 % Xylocaine local anesthesia, a 5 Serbian needle-catheter was introduced under ultrasound guidance. Th e paracentesis catheter was then slowly advanced while the inner needle was carefully fixed in place and subsequently removed. The external component was then secured to a Vacutainer device for purposes of ascites fluid removal. 4650 mL of fluid was removed. The catheter was then removed and hemostasis achieved. Ultrasound images obtained for purposes of smita ging guidance were archived to the hospital PACS. Complications: No immediate complications. IMPRESSION: 1. Successful ultrasound-guided paracentesis with removal of 4650 mL of ascites fluid. Report Dictated By: Lewis Fowler MD at 02/03/2018 3:29 PM Report E-Signed By: Lewis Fowler MD at 02/03/2018 3:31 PM WSN:[email or web address]
== END ==
LOC: US 01:11
PROVIDERS: ATTEND Internal Medicine
DX: D69.6 Thrombocytopenia, unspecified (principal); R18.8 Other ascites; K74.60 Unspecified cirrhosis of liver; E87.1 Hypo-osmolality and hyponatremia
CPT/HCPCS: 49083; 82042; 83986; 84157; 87071; 87205; 88104; 89050; A7048

== ENCOUNTER → 2018-03-03 | Outpatient (CLI) | payer OTHER ==
[~2018-03-03] MED LIST changes: +FLU60SYR36 IM
[2018-03-03 14:26] LABS: PLATELET COUNT, AUTOMATED 166 K/uL (150-450)
[2018-03-03 14:39] LABS: INR 1.2
--- NOTE | 2018-03-03 16:50 | RADIOLOGY IMAGING REPORT ---
FACILITY: [facility] PATIENT NAME: Rizwan Nazario : 1960 MR: [id number] V: [id number] EXAM DATE: ORDERING PHYSICIAN: CHIRSTI JENSEN TECHNOLOGIST: Location: [facility] Patient: Rizwan Nazario : 1960 Visit/Account:[id number] Date of Sevice: 03/03/2018 Exam type: PARACENTESIS History: Ascites Comparison: February 03, 2018. Findings: Informed consent was obtained. The patient's right lateral lower abdomen was prepped and draped usua l sterile fashion. Local anesthesia was accomplished with 1% lidocaine. Utilizing sonographic ramya nce a Yueh catheter was advanced percutaneously into the right lateral lower abdominal cavity. 4550 mL of fredy-colored perineal fluid was removed from the patient. The procedure was accomplished with out apparent complication. IMPRESSION: 1. Successful sonographically guided paracentesis with interval removal of 4550 mL of fredy ascitic fluid Report Dictated By: Jory Bella MD at 03/03/2018 4:44 PM Report E-Signed By: Jory Bella MD at 03/03/2018 4:45 PM WSN:[email or web address]
== END ==
LOC: US 00:36
PROVIDERS: ATTEND Internal Medicine
DX: K74.60 Unspecified cirrhosis of liver (principal); R18.8 Other ascites; E78.1 Pure hyperglyceridemia; D69.6 Thrombocytopenia, unspecified
CPT/HCPCS: 36415; 49083; 85025; 85610; A7048; 82040; 82247; 82310; 82374; 82435; 82565; 82947; 84075; 84132; 84155; 84295; 84450; 84460; 84520

== ENCOUNTER 2018-03-27 10:57 | Outpatient (RCR) | payer OTHER ==
[2018-01-09 13:48] VITALS: BP 114/74
[2018-01-09] MEDS: ALBUMIN HUMAN 25% 50 ML VIAL 50 ML IVPB SCH ×4 (14:12→16:30)
[2018-01-09 14:28] LABS: INR 1.21
[2018-01-09 14:30] LABS: PLATELET COUNT, AUTOMATED 156 K/uL (150-450)
[2018-01-16 09:54] VITALS: BP 116/86
[2018-01-16] MEDS: ALBUMIN HUMAN 25% 50 ML VIAL 50 ML IVPB SCH ×4 (10:28→13:30)
[2018-01-23 11:02] VITALS: BP 120/82
[2018-01-23] MEDS: ALBUMIN HUMAN 25% 50 ML VIAL 50 ML IVPB SCH ×4 (11:11→11:17)
[2018-01-30 11:02] VITALS: BP 113/71
[2018-01-30] MEDS: ALBUMIN HUMAN 25% 50 ML VIAL 50 ML IVPB SCH ×4 (11:16→11:24)
[2018-02-06 11:03] VITALS: BP 105/64
[2018-02-06] MEDS: ALBUMIN HUMAN 25% 50 ML VIAL 50 ML IVPB SCH ×4 (11:10→11:32)
[2018-02-20 12:13] VITALS: BP 105/71
[2018-02-27 11:33] VITALS: BP 111/73
[2018-02-27] MEDS: ALBUMIN HUMAN 25% 50 ML VIAL 50 ML IVPB SCH ×4 (11:36→12:07)
[2018-02-27 11:39] LABS: PLATELET COUNT, AUTOMATED 170 K/uL (150-450)
[2018-02-27 12:46] VITALS: BP 119/73
[2018-03-06 11:10] VITALS: BP 119/71
[2018-03-06] MEDS: ALBUMIN HUMAN 25% 50 ML VIAL 50 ML IVPB SCH ×4 (11:22→11:47)
[2018-03-06 12:07] VITALS: BP 106/63
[2018-03-13] MEDS: ALBUMIN HUMAN 25% 50 ML VIAL 50 ML IVPB SCH ×4 (11:15→11:45)
[2018-03-13 11:57] VITALS: BP 117/70
[2018-03-20] MEDS: ALBUMIN HUMAN 25% 50 ML VIAL 50 ML IVPB SCH ×4 (15:52→16:45)
[2018-03-20 16:00] VITALS: BP 116/74
[2018-03-20 17:18] VITALS: BP 116/75
[~2018-03-27 10:57] MED LIST changes: +ALBUMIN HUMAN 25% 50 ML VIAL 50 ML IVPB SCH; +DEXTROSE 5%(*) 100 ML BAG 100 ML IVPB PRN; +LIDOCAINE/SOD BICARB 8.4% SYR ID PRN; +NS(*) 0.9% 100 ML BAG 100 ML IVPB PRN
[2018-03-27 11:04] VITALS: BP 119/70
== END 2018-04-09 ==
LOC: SPU 10:57
PROVIDERS: ATTEND Internal Medicine
DX: K74.60 Unspecified cirrhosis of liver (principal); R18.8 Other ascites; E87.1 Hypo-osmolality and hyponatremia
CPT/HCPCS: 36415; 85025; 85610; 96365; 96366; P9047; 82040; 82247; 82274; 82310; 82374; 82435; 82565; 82947; 84075; 84132; 84155; 84295; 84450; 84460; 84520

== ENCOUNTER → 2018-04-08 | Outpatient (CLI) | payer OTHER ==
[~2018-04-08] MED LIST changes: -ALBUMIN HUMAN 25% 50 ML VIAL 50 ML IVPB SCH; -DEXTROSE 5%(*) 100 ML BAG 100 ML IVPB PRN; -LIDOCAINE/SOD BICARB 8.4% SYR ID PRN; -NS(*) 0.9% 100 ML BAG 100 ML IVPB PRN
--- NOTE | 2018-04-08 14:33 | RADIOLOGY IMAGING REPORT ---
FACILITY: [facility] - [place] PATIENT NAME: Rizwan Nazario : 1960 MR: [id number] V: [id number] EXAM DATE: ORDERING PHYSICIAN: JEANETTE LOVE TECHNOLOGIST: Location: [facility] - [place] Patient: Rizwan Nazario : 1960 Visit/Account:[id number] Date of Sevice: 04/08/2018 EXAMINATION: CT BRAIN NO CONTRAST CLINICAL INDICATION: Fall with slurred speech COMPARISON: No priors TECHNIQUE: Contiguous axial CT images of the brain were obtained without IV contrast. Sagittal and co nicolás reformatted images were also performed. One of the following dose optimization techniques was utilized in the performance of this exam: Autom ated exposure control; adjustment of the mA and/or kV according to the patient's size; or use of an i terative reconstruction technique. Specific details can be referenced in the facility's radiology C T exam operational policy. RESULT: BRAIN: The ventricles are symmetric and normal in size. The brain parenchyma appears normal. The gra y-white matter differentiation is preserved and the basilar cisterns are maintained. The cerebellum a nd brainstem appear normal. There is no mass, acute infarct, hemorrhage or shift of midline. VISUALIZED PARANASAL SINUSES & MASTOIDS: Small polyp versus mucus retention cyst within the right Sinus. SKULL BASE & CRANIUM: Visualized osseous structures are intact. IMPRESSION: No acute findings. Report Dictated By: Wang Astudillo MD at 04/08/2018 2:28 PM Report E-Signed By: Wang Astudillo MD at 04/08/2018 2:29 PM WSN:[email or web address]
== END ==
LOC: CT 13:27
PROVIDERS: ATTEND Nurse Practitioner Family
DX: S09.90XA Unspecified injury of head, initial encounter (principal)
CPT/HCPCS: 70450

== ENCOUNTER 2018-04-12 09:09 | Emergency (ER) | payer OTHER ==
--- NOTE | 2018-04-12 09:36 | ER Report ---
History and Physical Time Seen By MD: 09:36 Hx. of Stated Complaint: FELL LAST WEEK, NO FRACTURES, STIFFNESS, HAS BEEN UNABLE TO SLEEP, WEAK HPI/ROS CHIEF COMPLAINT: Insomnia 2 nights, recent history of fall HISTORY OF PRESENT ILLNESS: Patient is a 58-year-old male with a history significant for liver cirrhosis with a recent fall last week without fractures. Patient reports being unable to sleep for the past 2 nights which is abnormal for him. He also complains of generalized fatigue, mild weakness. Denies fevers, chills, chest pain, shortness breath, abdominal pain, nausea, vomiting, hematuria, dysuria, headache or blurred vision. REVIEW OF SYSTEMS: Constitutional: No fever, no chills. Eyes: No discharge. ENT: No sore throat. Cardiovascular: No chest pain, no palpitations. Respiratory: No cough, no shortness of breath. Gastrointestinal: No abdominal pain, no vomiting. Genitourinary: No hematuria. Musculoskeletal: No back pain. Skin: No rashes. Neurological: No headache. No focal neurological deficits Allergies: Coded Allergies: No Known Drug Allergies (Verified , 04/29/16) Home Meds Active Scripts Zolpidem Tartrate (AMBIEN) 5 Mg Tablet, 1 TAB PO QHS PRN for INSOMNIA, #5 TAB Prov:RAÚL LO DO 04/12/18 Oxycodone Hcl (OXYCODONE HCL) 5 Mg Tablet, 7.5 MG PO TID PRN for pain, #120 TAB Prov:CHRISTI JENSEN MD 02/25/18 Spironolactone (SPIRONOLACTONE) 100 Mg Tablet, 100 MG PO QAM, #30 TAB 3 Refills Prov:CHRISTI JENSEN MD 02/23/18 Furosemide (FUROSEMIDE) 40 Mg Tablet, 40 MG PO DIRECTED, #120 TAB 2 Refills take 2 in am and 2 in the evening Prov:CHRISTI JENSEN MD 01/06/18 Pantoprazole Sodium (PANTOPRAZOLE SODIUM) 40 Mg Tablet.dr, 40 MG PO QDAY, #30 TAB 6 Refills Prov:CHRISTI JENSEN MD 10/17/17 Levothyroxine Sodium (LEVOTHYROXINE SODIUM) 75 Mcg Tablet, 75 MCG PO QDAY, #90 TAB 2 Refills Prov:CHRISTI JENSEN MD 10/17/17 Hx Smoking: No Smoking Status: Never Smoker Exposure to Second Hand Smoke?: No Hx Substance Use Disorder: No Hx Alcohol Use: Yes (HX) Constitutional Vital Sign - Last 24 Hours 04/12/18 04/12/18 04/12/18 04/12/18 09:09 09:19 09:20 09:24 Temp 98.4 Pulse ??? 101 93 Resp 14 B/P (MAP) 139/80 139/80 (99) Pulse Ox 91 88 O2 Delivery Room Air 04/12/18 04/12/18 04/12/18 04/12/18 09:30 09:39 09:54 10:00 Pulse 84 81 Resp 15 B/P (MAP) 131/71 (91) 122/81 (95) Pulse Ox 86 91 04/12/18 04/12/18 04/12/18 04/12/18 10:09 10:24 10:30 10:39 Pulse 84 ??? 76 Resp 23 17 B/P (MAP) 123/75 (91) Pulse Ox 93 93 04/12/18 04/12/18 04/12/18 04/12/18 10:54 11:00 11:05 11:20 Pulse 80 76 87 Resp 24 17 33 B/P (MAP) 119/80 (93) Pulse Ox 95 94 97 04/12/18 04/12/18 04/12/18 04/12/18 11:30 11:35 11:38 11:50 Pulse ??? 76 Resp 15 B/P (MAP) ???/??? (0955) 130/80 (97) Pulse Ox 87 04/12/18 04/12/18 04/12/18 12:00 12:05 12:38 Pulse 87 B/P (MAP) 129/79 (96) O2 Flow Rate 1.0 Intake and Output 04/12/18 04/12/18 04/13/18 15:00 23:00 07:00 Intake Total 800 ml Balance 800 ml Physical Exam General Appearance: The patient is alert, has no immediate need for airway protection and no signs of toxicity. No acute distress Eyes: Pupils equal and round no pallor or injection. ENT, Mouth: Mucous membranes are moist. Respiratory: There are no retractions, lungs are clear to auscultation. Cardiovascular: Regular rate and rhythm. Gastrointestinal: Abdomen is soft and non tender, no masses, bowel sounds normal. Neurological: No focal neurological findings, cranial nerves intact Skin: Warm and dry, no rashes. Musculoskeletal: Neck is supple non tender. Extremities are nontender, nonswollen and have full range of motion. DIFFERENTIAL DIAGNOSIS: After history and physical exam differential diagnosis was considered for insomnia, dehydration, electrolyte imbalance, hyperammonemia, poor sleep hygiene Medical Decision Making Data Points Result Diagram: 04/12/18 1016 04/12/18 [facility] [place] [facility] Hematology Test 04/12/18 10:16 04/12/18 11:38 Red Blood Count 3.14 M/uL (4.00-5.60) Mean Corpuscular Volume 98.4 fL (80.0-96.0) Mean Corpuscular Hemoglobin 33.2 pg (26.0-33.0) Mean Corpuscular Hemoglobin Concent 33.7 g/dL (32.0-36.0) Red Cell Distribution Width 15.2 % (11.5-14.5) Mean Platelet Volume 7.3 fL (7.2-11.1) Neutrophils (%) (Auto) 64.4 % (39.4-72.5) Lymphocytes (%) (Auto) 8.5 % (17.6-49.6) Monocytes (%) (Auto) 18.5 % (4.1-12.4) Eosinophils (%) (Auto) 7.5 % (0.4-6.7) Basophils (%) (Auto) 1.1 % (0.3-1.4) Nucleated RBC Relative Count (auto) 0.2 /100WBC Neutrophils # (Auto) 2.1 K/uL (2.0-7.4) Lymphocytes # (Auto) 0.3 K/uL (1.3-3.6) Monocytes # (Auto) 0.6 K/uL (0.3-1.0) Eosinophils # (Auto) 0.2 K/uL (0.0-0.5) Basophils # (Auto) 0.0 K/uL (0.0-0.1) Nucleated RBC Absolute Count (auto) 0.01 K/uL Peripheral Blood Smear No Y/N Sodium Level 122 mmol/L (137-145) Potassium Level 4.0 mmol/L (3.5-5.0) Chloride Level 84 mmol/L (98-107) Carbon Dioxide Level 23 mmol/L (22-30) Blood Urea Nitrogen 17 mg/dl (9-21) Creatinine 0.70 mg/dl (0.66-1.25) Glomerular Filtration Rate Calc > 60.0 Random Glucose 172 mg/dl (75-110) Calcium Level 9.2 mg/dl (8.4-10.2) Total Bilirubin 1.5 mg/dl (0.2-1.3) Aspartate Amino Transf (AST/SGOT) 66 U/L (0-35) Alanine Aminotransferase (ALT/SGPT) 22 U/L (0-56) Alkaline Phosphatase 165 U/L (0-126) Ammonia 50 UMOL/L (9-33) Total Protein 8.2 g/dl (6.3-8.2) Albumin 4.1 g/dl (3.5-5.0) Urine Color Straw Urine Clarity Clear Urine pH 7.0 pH (4.8-9.5) Urine Specific [place] 1.003 Urine Protein Negative mg/dL (NEGATIVE) Urine Glucose (UA) Negative mg/dL (NEGATIVE) Urine Ketones Negative mg/dL (NEGATIVE) Urine Blood Negative (NEGATIVE) Urine Nitrite Negative (NEGATIVE) Urine Bilirubin Negative (NEGATIVE) Urine Urobilinogen Negative mg/dL (0.2-1.9) Urine Leukocyte Esterase Negative (NEGATIVE) Urine RBC None /HPF (0-2/HPF) Urine WBC <1 /HPF (0-5/HPF) Urine Squamous Epithelial Cells None /LPF (</=FEW) Urine Bacteria Negative /HPF (NONE-FEW) Urine Mucus None /HPF (NONE-FEW) Chemistry Test 04/12/18 10:16 04/12/18 11:38 White Blood Count 3.3 k/uL (4.5-11.0) Red Blood Count 3.14 M/uL (4.00-5.60) Hemoglobin 10.4 g/dL (14.0-18.0) Hematocrit 30.9 % (42.0-52.0) Mean Corpuscular Volume 98.4 fL (80.0-96.0) Mean Corpuscular Hemoglobin 33.2 pg (26.0-33.0) Mean Corpuscular Hemoglobin Concent 33.7 g/dL (32.0-36.0) Red Cell Distribution Width 15.2 % (11.5-14.5) Platelet Count 121 K/uL (150-450) Mean Platelet Volume 7.3 fL (7.2-11.1) Neutrophils (%) (Auto) 64.4 % (39.4-72.5) Lymphocytes (%) (Auto) 8.5 % (17.6-49.6) Monocytes (%) (Auto) 18.5 % (4.1-12.4) Eosinophils (%) (Auto) 7.5 % (0.4-6.7) Basophils (%) (Auto) 1.1 % (0.3-1.4) Nucleated RBC Relative Count (auto) 0.2 /100WBC Neutrophils # (Auto) 2.1 K/uL (2.0-7.4) Lymphocytes # (Auto) 0.3 K/uL (1.3-3.6) Monocytes # (Auto) 0.6 K/uL (0.3-1.0) Eosinophils # (Auto) 0.2 K/uL (0.0-0.5) Basophils # (Auto) 0.0 K/uL (0.0-0.1) Nucleated RBC Absolute Count (auto) 0.01 K/uL Peripheral Blood Smear No Y/N Glomerular Filtration Rate Calc > 60.0 Calcium Level 9.2 mg/dl (8.4-10.2) Total Bilirubin 1.5 mg/dl (0.2-1.3) Aspartate Amino Transf (AST/SGOT) 66 U/L (0-35) Alanine Aminotransferase (ALT/SGPT) 22 U/L (0-56) Alkaline Phosphatase 165 U/L (0-126) Ammonia 50 UMOL/L (9-33) Total Protein 8.2 g/dl (6.3-8.2) Albumin 4.1 g/dl (3.5-5.0) Urine Color Straw Urine Clarity Clear Urine pH 7.0 pH (4.8-9.5) Urine Specific [place] 1.003 Urine Protein Negative mg/dL (NEGATIVE) Urine Glucose (UA) Negative mg/dL (NEGATIVE) Urine Ketones Negative mg/dL (NEGATIVE) Urine Blood Negative (NEGATIVE) Urine Nitrite Negative (NEGATIVE) Urine Bilirubin Negative (NEGATIVE) Urine Urobilinogen Negative mg/dL (0.2-1.9) Urine Leukocyte Esterase Negative (NEGATIVE) Urine RBC None /HPF (0-2/HPF) Urine WBC <1 /HPF (0-5/HPF) Urine Squamous Epithelial Cells None /LPF (</=FEW) Urine Bacteria Negative /HPF (NONE-FEW) Urine Mucus None /HPF (NONE-FEW) Urinalysis Test 04/12/18 11:38 Urine Color Straw Urine Clarity Clear Urine pH 7.0 pH (4.8-9.5) Urine Specific [place] 1.003 Urine Protein Negative mg/dL (NEGATIVE) Urine Glucose (UA) Negative mg/dL (NEGATIVE) Urine Ketones Negative mg/dL (NEGATIVE) Urine Blood Negative (NEGATIVE) Urine Nitrite Negative (NEGATIVE) Urine Bilirubin Negative (NEGATIVE) Urine Urobilinogen Negative mg/dL (0.2-1.9) Urine Leukocyte Esterase Negative (NEGATIVE) Urine RBC None /HPF (0-2/HPF) Urine WBC <1 /HPF (0-5/HPF) Urine Squamous Epithelial Cells None /LPF (</=FEW) Urine Bacteria Negative /HPF (NONE-FEW) Urine Mucus None /HPF (NONE-FEW) EKG/Imaging Imaging Location: [facility] - [place] Patient: Rizwan Nazario : 1960 Visit/Account:[id number] Date of Sevice: 04/12/2018 CHEST PA LAT Indication: Weakness Comparison: None. Findings: Lungs: Clear. Mediastinum/pulmonary vasculature: Heart size and pulmonary vasculature are normal. Bones/soft tissues: Normal. IMPRESSION: Clear lungs. ED Course/Re-evaluation ED Course Patient is a 58-year-old male here with complaints of insomnia status post fall last week with no reported fractures or significant injury. Patient reportedly had difficulty sleeping for the past 2 nights prompting evaluation due to generalized fatigue and weakness. There are no obvious signs of trauma or fractures on physical examination. Patient's labs are checked, there are no e lectrolyte abnormalities, urinalysis was unremarkable as well. Chest x-ray was checked due to patient's reported mild shortness breath, saturations around 90%. Chest x-ray showed no acute findings. Patient was found to have hyperammonemia which is new for this patient however patient denied any history of confusion, altered sensorium so lactulose was deferred at this time. Patient was advised to follow closely with his PCP which she has an appointment with in the upcoming days. Return precautions provided. Patient was advised to attempt taking melatonin for initial Sleep-Aid. Patient was given a prescription for a short course of Ambien when necessary. Patient was stable at time of discharge and in no acute distress, alert and oriented, hemodynamically stable. Decision to Disposition Date: Apr 12, 2018 Decision to Disposition Time: 12:30 Depart Departure Latest Vital Signs Vital Signs Date Time Temp Pulse Resp B/P (MAP) Pulse Ox O2 Delivery O2 Flow Rate FiO2 04/12/18 12:38 1.0 04/12/18 12:05 87 04/12/18 12:00 129/79 (96) 04/12/18 11:50 15 87 04/12/18 09:19 98.4 Room Air Impression: Primary Impression: INSOMNIA, UNSPECIFIED Condition: Improved Disposition: HOME OR SELF-CARE Referrals: CHRISTI JENSEN MD (PCP) New Scripts Zolpidem Tartrate (AMBIEN) 5 Mg Tablet 1 TAB PO QHS PRN for INSOMNIA, #5 TAB Prov: RAÚL LO DO 04/12/18 Patient Instructions: Insomnia (ED) Additional Instructions: Please follow-up in the next 24-48 hours with your family doctor as you may need to start medications to treat your ammonia levels. Please return promptly if you develop confusion, increased fatigue, fevers, chills, chest pain or shortness of breath. You may take 1 tablet or 5 mg of Ambien at night as needed for sleep. Do not drink alcohol or combine with other medications. RAÚL LO DO Apr 12, 2018 09:36
[2018-04-12 10:32] LABS: PLATELET COUNT, AUTOMATED 121 K/uL (150-450)
--- NOTE | 2018-04-12 10:40 | RADIOLOGY IMAGING REPORT ---
[place] [facility] [place] Rizwan Nazario : 1960 MR: [id number] V: [id number] EXAM DATE: ORDERING PHYSICIAN: RAÚL LO TECHNOLOGIST: Location: [facility] Patient: Rizwan Nazario : 1960 Visit/Account:[id number] Date of Sevice: 04/12/2018 CHEST PA LAT Indication: Weakness Comparison: None. Findings: Lungs: Clear. Mediastinum/pulmonary vasculature: Heart size and pulmonary vasculature are normal. Bones/soft tissues: Normal. IMPRESSION: Clear lungs. Report Dictated By: Justin Koroma at 04/12/2018 10:35 AM Report E-Signed By: Justin Koroma at 04/12/2018 10:36 AM WSN:[id number]
[2018-04-12] MEDS ORDERED: NS(*) 0.9% 1000 ML BAG 1,000 ML IV ONE (10:45)
[2018-04-12 12:00] VITALS: BP 129/79
[2018-04-12] MEDS ORDERED: ZOLP-1 PO (12:12)
[2018-04-14] MEDS ORDERED: MIRT-27 PO (12:59)
[2018-04-14] MEDS ORDERED: OXYC5TAB38 PO (13:02)
[2018-04-14] MEDS ORDERED: PNEI IJ (13:33)
[2018-04-14] MEDS ORDERED: MIRT-22 PO (17:03)
== END 2018-04-12 12:25 | disposition home or self-care (01) ==
LOC: ER 09:45
DX: G47.00 Insomnia, unspecified (principal); E72.20 Disorder of urea cycle metabolism, unspecified
CPT/HCPCS: 71046; 81001; 82040; 82140; 82247; 82310; 82374; 82435; 82565; 82947; 84075; 84132; 84155; 84295; 84450; 84460; 84520; 85025; 96360; 99283; J7030

== ENCOUNTER 2018-04-17 10:45 | Outpatient (RCR) | payer OTHER ==
[2018-02-11 08:27] VITALS: BP 110/75
[2018-02-11 10:02] VITALS: BP 99/64
[2018-02-20 11:08] VITALS: BP 110/80
[2018-03-13 11:01] VITALS: BP 107/63
[~2018-04-17 10:45] MED LIST changes: +ALBUMIN HUMAN 25% 50 ML VIAL 50 ML IVPB ONE; +CLIN300C99 PO; +MIRT-22 PO; +MIRT15TA11 PO; +PNEI IJ; +ZOLP-1 PO
[2018-04-17] MEDS ORDERED: ALBUMIN HUMAN 25% 50 ML VIAL 50 ML IVPB ONE ×4 (11:00→14:00)
[2018-04-17] MEDS ORDERED: ERTAPENEM(*) 1 GM VIAL 1 GM in NS(*) 0.9% 100 ML ADDVANT BAG 100 ML IVPB ONE (11:10)
[2018-04-18] MEDS ORDERED: ERTAPENEM(*) 1 GM VIAL 1 GM in NS(*) 0.9% 100 ML ADDVANT BAG 100 ML IVPB ONE (08:45)
[2018-04-18] MEDS ORDERED: DEXTROSE 5%(*) 100 ML BAG 100 ML IVPB PRN (08:48)
[2018-04-18] MEDS ORDERED: LIDOCAINE/SOD BICARB 8.4% SYR ID PRN (08:48)
[2018-04-18] MEDS: NS(*) 0.9% 100 ML BAG 100 ML IVPB PRN (08:55)
[2018-04-18 09:10] VITALS: BP 110/63
[2018-04-18 09:36] VITALS: BP 113/72
[2018-04-19] MEDS: NS(*) 0.9% 100 ML BAG 100 ML IVPB PRN (08:56)
[2018-04-19] MEDS ORDERED: ERTAPENEM(*) 1 GM VIAL 1 GM in NS(*) 0.9% 100 ML ADDVANT BAG 100 ML IVPB ONE (09:00)
[2018-04-19 09:05] VITALS: BP 122/84
[2018-04-28] MEDS ORDERED: FURO-47 PO (14:48)
[2018-04-28] MEDS ORDERED: LEVO75TA73 PO (14:48)
== END 2018-05-07 ==
LOC: SPU 10:45
PROVIDERS: ATTEND Internal Medicine
DX: R18.8 Other ascites (principal); K74.60 Unspecified cirrhosis of liver; L03.90 Cellulitis, unspecified
CPT/HCPCS: 36415; 85651; 85730; 86140; 86706; 86708; 96365; J1335; J7050; P9047; 82040; 82247; 82310; 82374; 82435; 82565; 82947; 84075; 84132; 84155; 84295; 84450; 84460; 84520

== ENCOUNTER → 2018-04-22 | Outpatient (CLI) | payer OTHER ==
[~2018-04-22] MED LIST changes: -ALBUMIN HUMAN 25% 50 ML VIAL 50 ML IVPB ONE; +MIRT-27 PO; -MIRT15TA11 PO
--- NOTE | 2018-04-22 17:11 | RADIOLOGY IMAGING REPORT ---
FACILITY: [facility] - [place] PATIENT NAME: Rizwan Nazario : 1960 MR: [id number] V: [id number] EXAM DATE: ORDERING PHYSICIAN: CHRISTI JENSEN TECHNOLOGIST: Location: [facility] Patient: Rizwan Nazario : 1960 Visit/Account:[id number] Date of Sevice: 04/22/2018 Exam type: PARACENTESIS History: Ascitis, paracentesis Comparison: March 03, 2018. Findings: Evaluation of the abdomen demonstrated small to moderate amount of ascites however an adequate pocket of fluid could not be localized for insertion of the paracentesis catheter without risk of injuring adjacent bowel. The paracentesis is postponed at this time IMPRESSION: 1. As above Report Dictated By: Jory Bella MD at 04/22/2018 5:06 PM Report E-Signed By: Jory Bella MD at 04/22/2018 5:07 PM WSN:[email or web address]
== END ==
LOC: US 01:22
PROVIDERS: ATTEND Internal Medicine
DX: K74.60 Unspecified cirrhosis of liver (principal); R18.8 Other ascites
CPT/HCPCS: 49083; A7048

== ENCOUNTER → 2018-05-20 | Outpatient (CLI) | payer OTHER ==
[~2018-05-20] MED LIST changes: -MIRT-27 PO; +MIRT15TA11 PO
== END ==
LOC: US 01:13
PROVIDERS: ATTEND Internal Medicine
DX: K70.31 Alcoholic cirrhosis of liver with ascites (principal)

== ENCOUNTER 2018-06-19 10:56 | Outpatient (RCR) | payer OTHER ==
[2018-04-10 11:30] VITALS: BP 140/86
[2018-04-17] MEDS: ALBUMIN HUMAN 25% 50 ML VIAL 50 ML IVPB SCH ×4 (11:13→11:48)
[2018-04-17 11:17] LABS: PLATELET COUNT, AUTOMATED 131 K/uL (150-450)
[2018-04-17 11:34] LABS: INR 1.19
[2018-04-24 10:59] VITALS: BP 98/67
[2018-04-24] MEDS: ALBUMIN HUMAN 25% 50 ML VIAL 50 ML IVPB SCH ×4 (11:15→11:49)
[2018-05-01 11:15] VITALS: BP 97/63
[2018-05-01] MEDS: ALBUMIN HUMAN 25% 50 ML VIAL 50 ML IVPB SCH ×4 (11:27→11:51)
[2018-05-01 11:50] VITALS: BP 102/55
[2018-05-08 10:59] VITALS: BP 119/75
[2018-05-08] MEDS: ALBUMIN HUMAN 25% 50 ML VIAL 50 ML IVPB SCH ×4 (11:20→11:44)
[2018-05-08 11:49] VITALS: BP 110/66
[2018-05-15 11:02] VITALS: BP 121/72
[2018-05-15] MEDS: ALBUMIN HUMAN 25% 50 ML VIAL 50 ML IVPB SCH (11:22)
[2018-05-22 10:57] VITALS: BP 110/72
[2018-05-22] MEDS: ALBUMIN HUMAN 25% 50 ML VIAL 50 ML IVPB SCH ×4 (11:31→11:51)
[2018-05-22 11:55] VITALS: BP 111/67
[2018-05-29 10:01] VITALS: BP 128/75
[2018-05-29] MEDS: ALBUMIN HUMAN 25% 50 ML VIAL 50 ML IVPB SCH ×4 (10:17→10:44)
[2018-05-29 10:40] VITALS: BP 106/67
[2018-06-05] MEDS: ALBUMIN HUMAN 25% 50 ML VIAL 50 ML IVPB SCH ×4 (16:13→16:38)
[2018-06-05 16:14] VITALS: BP 134/71
[2018-06-05 16:39] VITALS: BP 106/62
[2018-06-12 16:05] VITALS: BP 124/68
[2018-06-12] MEDS: ALBUMIN HUMAN 25% 50 ML VIAL 50 ML IVPB PRN ×4 (16:18→16:39)
[2018-06-12 16:27] LABS: PLATELET COUNT, AUTOMATED 123 K/uL (150-450)
[2018-06-12 16:40] VITALS: BP 106/64
[2018-06-12 16:48] LABS: INR 1.27
[~2018-06-19 10:56] MED LIST changes: +ALBUMIN HUMAN 25% 50 ML VIAL 50 ML IVPB ONE; +ALBUMIN HUMAN 25% 50 ML VIAL 50 ML IVPB SCH; +ALBUMIN HUMAN 25% 50 ML VIAL IVPB ONE; +DEXTROSE 5%(*) 100 ML BAG 100 ML IVPB PRN; +LIDOCAINE/SOD BICARB 8.4% SYR ID PRN; +NS(*) 0.9% 100 ML BAG 100 ML IVPB PRN
[2018-06-19 11:01] VITALS: BP 128/69
[2018-06-19] MEDS ORDERED: ALBUMIN HUMAN 25% 50 ML VIAL 50 ML IVPB PRN ×3 (11:05)
[2018-06-19 11:19] LABS: PLATELET COUNT, AUTOMATED 125 K/uL (150-450)
[2018-06-19] MEDS: ALBUMIN HUMAN 25% 50 ML VIAL 50 ML IVPB PRN (11:29)
[2018-06-19 11:47] VITALS: BP 111/65
[2018-06-23] MEDS ORDERED: OXYC5TAB38 PO (14:23)
[2018-06-26] MEDS ORDERED: ALBUMIN HUMAN 25% 50 ML VIAL 50 ML IVPB SCH ×4 (11:00→14:00)
[2018-06-26 11:25] VITALS: BP 112/67
[2018-06-26] MEDS ORDERED: SPIR100T33 PO (14:13)
== END 2018-07-09 ==
LOC: SPU 10:56
PROVIDERS: ATTEND Internal Medicine
DX: K74.60 Unspecified cirrhosis of liver (principal); R18.8 Other ascites; E87.1 Hypo-osmolality and hyponatremia
CPT/HCPCS: 36415; 82728; 83540; 83550; 85025; 85610; 96365; P9047; 82040; 82247; 82310; 82374; 82435; 82565; 82947; 84075; 84132; 84155; 84295; 84450; 84460; 84520

== ENCOUNTER 2018-07-24 10:55 | Outpatient (RCR) | payer OTHER ==
[2018-05-15 11:24] LABS: PLATELET COUNT, AUTOMATED 116 K/uL (150-450)
[2018-05-15 11:30] LABS: INR 1.19
[2018-06-26 10:55] VITALS: BP 120/75
[~2018-07-24 10:55] MED LIST changes: -ALBUMIN HUMAN 25% 50 ML VIAL 50 ML IVPB ONE; -ALBUMIN HUMAN 25% 50 ML VIAL IVPB ONE; -DEXTROSE 5%(*) 100 ML BAG 100 ML IVPB PRN; -LIDOCAINE/SOD BICARB 8.4% SYR ID PRN; -NS(*) 0.9% 100 ML BAG 100 ML IVPB PRN
[2018-07-28] MEDS ORDERED: FURO-47 PO (11:52)
[2018-07-28] MEDS ORDERED: PANT40TA65 PO (12:53)
== END 2018-08-13 ==
LOC: SPU 10:55
PROVIDERS: ATTEND Internal Medicine
DX: K74.60 Unspecified cirrhosis of liver (principal); R18.8 Other ascites; G47.00 Insomnia, unspecified; G89.29 Other chronic pain; E87.1 Hypo-osmolality and hyponatremia; L03.90 Cellulitis, unspecified
CPT/HCPCS: 36415; 82040; 82247; 82310; 82374; 82435; 82565; 82947; 84075; 84132; 84155; 84295; 84450; 84460; 84520; 85025; 85610

== ENCOUNTER → 2018-08-05 | Outpatient (CLI) | payer OTHER ==
[~2018-08-05] MED LIST changes: -ALBUMIN HUMAN 25% 50 ML VIAL 50 ML IVPB SCH
--- NOTE | 2018-08-05 17:35 | RADIOLOGY IMAGING REPORT ---
FACILITY: [facility] PATIENT NAME: Rizwan Nazario : 1960 MR: [id number] V: [id number] EXAM DATE: ORDERING PHYSICIAN: CHRISTI JENSEN TECHNOLOGIST: Location: [facility] [place] Patient: Rizwan Nazario : 1960 Visit/Account:[id number] Date of Sevice: 08/05/2018 EXAMINATION: Abdominal ultrasound complete HISTORY: Ascites, cirrhosis COMPARISON: September 22, 2017 FINDINGS: Gallbladder: Absent Liver: There is a coarse echotexture throughout the liver although discrete mass is not seen. The li ailyn surface appears lobular. Common duct: Normal measuring 5.5 mm. Pancreas: Pancreatic tail was not well seen. No gross abnormality of the head or body is identified Spleen: Normal in size and echogenicity measuring 9.1 cm in length. Kidneys: Kidneys have a polylobular contour, the right measures 12.4 cm in length, and the left 12.2 cm. No hydronephrosis. Upper abdominal aorta and IVC: Negative. Ascites: There was no demonstration of abdominal ascites IMPRESSION: Heterogeneous lobular appearing liver consistent with the history of cirrhosis although discrete mass is not demonstrated There is no demonstration of ascites There is a lobular contour to both kidneys Prior cholecystectomy Report Dictated By: Jory Bella MD at 08/05/2018 5:27 PM Report E-Signed By: Jory Bella MD at 08/05/2018 5:32 PM WSN:[id number]
== END ==
LOC: US 00:55
PROVIDERS: ATTEND Internal Medicine
DX: R18.8 Other ascites (principal); K74.60 Unspecified cirrhosis of liver; Z90.49 Acquired absence of other specified parts of digestive tract
CPT/HCPCS: 76700

== ENCOUNTER 2018-09-11 10:56 | Outpatient (RCR) | payer OTHER ==
[2018-07-10 11:09] VITALS: BP 125/75
[2018-07-10] MEDS: ALBUMIN HUMAN 25% 50 ML VIAL 50 ML IVPB SCH ×4 (11:23→11:44)
[2018-07-10 11:30] LABS: PLATELET COUNT, AUTOMATED 118 K/uL (150-450)
[2018-07-10 11:34] LABS: INR 1.2
[2018-07-10 11:49] VITALS: BP 118/71
[2018-07-17 11:07] VITALS: BP 129/69
[2018-07-17] MEDS: ALBUMIN HUMAN 25% 50 ML VIAL 50 ML IVPB SCH ×4 (11:15→11:45)
[2018-07-17 11:47] VITALS: BP 107/70
[2018-07-24 10:58] VITALS: BP 118/71
[2018-07-31 10:56] VITALS: BP 128/70
[2018-07-31] MEDS: ALBUMIN HUMAN 25% 50 ML VIAL 50 ML IVPB SCH ×4 (11:13→11:33)
[2018-07-31 11:34] VITALS: BP 111/68
[2018-08-07 11:00] VITALS: BP 140/78
[2018-08-07] MEDS: ALBUMIN HUMAN 25% 50 ML VIAL 50 ML IVPB SCH ×4 (11:09→12:14)
[2018-08-07 11:26] LABS: PLATELET COUNT, AUTOMATED 123 K/uL (150-450)
[2018-08-07 11:33] LABS: INR 1.12
[2018-08-07 12:16] VITALS: BP 123/79
[2018-08-21 10:58] VITALS: BP 126/79
[2018-08-21] MEDS: ALBUMIN HUMAN 25% 50 ML VIAL 50 ML IVPB SCH ×4 (11:07→11:39)
[2018-08-21 11:47] VITALS: BP 110/62
[2018-08-28 11:02] VITALS: BP 109/72
[2018-08-28] MEDS: ALBUMIN HUMAN 25% 50 ML VIAL 50 ML IVPB SCH ×4 (11:14→11:36)
[2018-08-28 11:41] VITALS: BP 109/66
[2018-09-11 10:56] VITALS: BP 124/81
[~2018-09-11 10:56] MED LIST changes: +ALBUMIN HUMAN 25% 50 ML VIAL 50 ML IVPB SCH; +DEXTROSE 5%(*) 100 ML BAG 100 ML IVPB PRN; +LIDOCAINE/SOD BICARB 8.4% SYR ID PRN; +NS(*) 0.9% 100 ML BAG 100 ML IVPB PRN; -OMEP-125 PO; +OMEP-126 PO
[2018-09-11] MEDS: ALBUMIN HUMAN 25% 50 ML VIAL 50 ML IVPB SCH ×4 (11:06→11:30)
[2018-09-11 11:12] LABS: PLATELET COUNT, AUTOMATED 140 K/uL (150-450)
[2018-09-11 11:20] LABS: INR 1.11
[2018-09-11 11:32] VITALS: BP 122/76
[2018-09-16] MEDS ORDERED: TRAZ50TA52 PO (12:57)
[2018-09-16] MEDS ORDERED: OXYC5TAB38 PO (13:00)
== END 2018-10-01 16:44 | disposition home or self-care (01) ==
LOC: SPU 10:56
PROVIDERS: ATTEND Internal Medicine
DX: K74.60 Unspecified cirrhosis of liver (principal); R18.8 Other ascites
CPT/HCPCS: 85025; 85610; 96365; P9047; 82040; 82247; 82310; 82374; 82435; 82565; 82947; 84075; 84132; 84155; 84295; 84450; 84460; 84520

== ENCOUNTER → 2018-09-16 | Outpatient (CLI) | payer OTHER ==
[~2018-09-16] MED LIST changes: -ALBUMIN HUMAN 25% 50 ML VIAL 50 ML IVPB SCH; -DEXTROSE 5%(*) 100 ML BAG 100 ML IVPB PRN; -LIDOCAINE/SOD BICARB 8.4% SYR ID PRN; -NS(*) 0.9% 100 ML BAG 100 ML IVPB PRN; +TRAZ50TA52 PO
--- NOTE | 2018-09-16 14:24 | EKG ---
FACILITY: [facility] - [place] PATIENT NAME: RITA MARIA : [id number] MR: [id number] V: [id number] EXAM DATE: ORDERING PHYSICIAN: CHRISTI JENSEN TECHNOLOGIST: DIONTE Test Reason : PRE-OP Blood Pressure : / mmHG Vent. Rate : 094 BPM Atrial Rate : 094 BPM P-R Int : 146 ms QRS Dur : 084 ms QT Int : 348 ms P-R-T Axes : 050 -05 027 degrees QTc Int : 435 ms Normal sinus rhythm Normal ECG When compared with ECG of 22-SEP-2017 07:33, Criteria for Septal infarct are no longer present Nonspecific T wave abnormality has replaced inverted T waves in Inferior leads Nonspecific T wave abnormality no longer evident in Anterolateral leads Referred By: JANAE Confirmed By:
== END ==
LOC: RESP 13:13
PROVIDERS: ATTEND Internal Medicine
DX: Z02.9 Encounter for administrative examinations, unspecified (principal)